=== PATIENT | female | born 1945 | race Caucasian/White ===

== ENCOUNTER → 2018-04-21 10:47 | Outpatient (CLI) | payer MEDICARE, BC, SELFPAY ==
--- NOTE | 2018-04-21 | DI.MRI.S_ITS ---
PROCEDURE: MR LUMBAR SPINE WO CON INDICATIONS: RT HIP AND BACK PAIN TECHNIQUE: Noncontrast sagittal T1 spin echo and T2 fast echo, sagittal STIR, axial T1 and T2 fast spin echo through the lumbar spine. In cases with scoliosis, additional coronal T2 fast spin echo may be performed. COMPARISON: [facility], MR, L-SPINE WITHOUT CONTRAST, 08/30/2013, 7:21. FINDINGS: Image quality: Excellent. Alignment and Curvature: There is trace retrolithesis of L1 on L2, L2 on L3, L3 on L4, Grade 1 anterolithesis of L4 on L5. Bone Marrow: Marrow is of normal overall signal. No acute vertebral body compression fractures. Spinal Cord: Conus medullaris terminates at the L1 level. Visualized cord demonstrates normal signal and size. 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 Paraspinous Soft Tissues: No paravertebral masses. 3 mm left renal cyst. L1-L2: Mild disc bulge without spinal stenosis. No foraminal narrowing. L2-L3: Mild disc bulge without spinal stenosis. No foraminal narrowing. L3-L4: Mild disc bulge without spinal stenosis. No foraminal narrowing. Facet and ligamentum flavum hypertrophy is present. L4-L5: Mild disc bulge with minimal spinal stenosis. No foraminal narrowing. Facet and ligamentum flavum hypertrophy. L5-S1: Mild disc bulge including right foraminal component. without spinal stenosis. Moderate to severe right and moderate left foraminal narrowing, progressive compared to prior exam. IMPRESSION: 1. Multilevel degenerative changes with interval progression. 2. Foraminal narrowing is most prominent at L5-S1 secondary to facet/ligament flavum arthropathy. Dictated by: Nelly Mcdonough M.D. on 04/21/2018 at 15:12 Approved by: Nelly Mcdonough M.D. on 04/21/2018 at 15:27
--- NOTE | 2018-04-21 | DI.MRI.S_ITS ---
PROCEDURE: MR HIP RT WO CON INDICATIONS: RT HIP AND BACK PAIN TECHNIQUE: Noncontrast coronal T1 spin echo and STIR through the bony pelvis. Coronal and axial T2 fast spin echo with fat saturation, sagittal T1 spin echo, and oblique axial T2 fast spin echo with fat saturation through the hip. COMPARISON: [facility], CR, XR PELVIS WITH BILATERAL LATERAL HIPS, 02/04/2018, 8:05. FINDINGS: Image quality: Diagnostic. Bones and joints: There is no acute fracture, dislocation, suspicious osseous lesion, or evidence of avascular necrosis involving the right hip. There is thinning and heterogeneity of the superior hyaline articular cartilage with early degenerative changes of the right hip joint. The alpha angle of the right femoral head measures less than 55?. No significant joint effusion is identified. The remainder of the image osseous structures of the included pelvis demonstrate age-appropriate degenerative changes of the lumbosacral spine. Postoperative changes of the left hip are compatible with a prior left hip arthroplasty. Labrum: Evaluation of the labrum is difficult without intra-articular contrast. However, small superior labral tear is identified extending from approximately the 10 o'clock position (anterosuperior) to the 12 o'clock position (superior). No large paralabral cysts are evident. Tendons and ligaments: There is moderate grade partial-thickness tearing and prominent tendinopathy involving the distal right gluteus medius tendon. Low-grade partial-thickness tearing and tendinopathy of the distal gluteus minimus tendon is present. A small amount of fluid is contained within the greater trochanteric bursa. Slight increased signal is noted involving the proximal right hamstrings tendons. The distal iliopsoas tendons are within normal limits. The ligamentum teres appears intact where visualized. Soft tissues: Visualized muscles demonstrate normal bulk and internal signal. Quadratus femoris muscle demonstrates no internal edema to suggest ischiofemoral impingement. The proximal sciatic neurovascular bundle appears normal adjacent to the hamstring tendons. No free pelvic fluid. Bladder wall thickness is normal. Genitourinary structures and bowel loops appear normal where visualized. IMPRESSION: 1. Mild degenerative changes of the right hip. No fractures. 2. Small anterosuperior right acetabular labral tear. 3. Moderate grade partial-thickness tearing and tendinopathy involving the distal right gluteus medius and gluteus minimus tendons. Please correlate clinically to exclude greater trochanteric pain syndrome. 4. Proximal right hamstrings tendinopathy. Dictated by: Aiden Silva M.D. on 04/21/2018 at 12:36 Approved by: Aiden Silva M.D. on 04/21/2018 at 12:40
== END ==
PROVIDERS: Family Provider Family Medicine; PCP Family Medicine; Visit Provider Family Medicine
DX: M54.5 Low back pain (principal); M25.551 Pain in right hip; S73.191A Other sprain of right hip, initial encounter; M16.11 Unilateral primary osteoarthritis, right hip; M51.36 Other intervertebral disc degeneration, lumbar region; M51.37 Other intervertebral disc degeneration, lumbosacral region; M48.07 Spinal stenosis, lumbosacral region
CPT/HCPCS: 72148; 73721

== ENCOUNTER → 2018-06-28 13:31 | Outpatient (CLI) | payer MEDICARE, BC, SELFPAY ==
--- NOTE | 2018-06-28 | DI.RAD.S_ITS ---
PROCEDURE: FL ARTHROGRAM SHOULDER RT INDICATIONS: INJURY OF RIGHT SHOULDER AND UPPER ARM TECHNIQUE: The indications, alternatives, benefits, risks, and complications of the procedure were explained to the patient. Written informed consent was obtained and placed in the chart. The shoulder was examined fluoroscopically and a site for needle placement chosen for entry into the glenohumeral joint from an anterior approach. The skin was prepped and draped in a sterile fashion, and 1% lidocaine infiltrated from skin down to joint capsule. A spinal needle was inserted into the glenohumeral joint, and a small amount of iodinated contrast media injected to confirm intra-articular placement of the needle tip. This was followed by approximately 12 mL dilute solution of a gadolinium containing MR contrast agent. The needle was removed and a dressing was applied. The patient was given postprocedural instructions and sent to the MR suite for MR imaging. FINDINGS: A single fluoroscopic spot image demonstrates intra-articular location of injected iodinated contrast. IMPRESSION: Successful fluoroscopically guided administration of dilute Gadolinium solution into the shoulder joint for MR arthrogram. Dictated by: Robert Akbar M.D. on 06/28/2018 at 14:40 Approved by: Robert Akbar M.D. on 06/28/2018 at 14:40
--- NOTE | 2018-06-28 13:42 | DI.MRI.S_ITS ---
PROCEDURE: MR SHOULDER RT W CON INDICATIONS: R shoulder injury, Rotator cuff tear R shoulder TECHNIQUE: After the administration of 12 mL of dilute intra-articular Gadolinium contrast, oblique coronal T1 and T2 spin echo with fat saturation, oblique sagittal T1 spin echo with and without fat saturation, oblique sagittal T2 fast spin echo with fat saturation, axial T1 spin echo with fat saturation through the shoulder. COMPARISON: None. FINDINGS: Image quality: Excellent. Rotator cuff: The infraspinatus and subscapularis tendons appear intact throughout. There is, however, a wide full-thickness supraspinatus rotator cuff tear retracted medially, with no evidence of associated muscular atrophy or fatty infiltration of the supraspinatus itself. No additional rotator cuff muscle atrophy on sagittal images. Bones and bursae: No bone marrow contusions or fractures. There is, however, moderately severe acromioclavicular joint degeneration with secondary fibrous and osseous hypertrophy impinging inferiorly against the normal expected course of the supraspinatus tendon. Chronic impingement syndrome likely has been present. The acromion demonstrates conventional anatomy, without an os acromiale. Capsule and soft tissues: The labrum and glenohumeral ligaments appear intact. The long head of the biceps tendon demonstrates normal location and morphology. The rotator interval appears normal, without fibrosis. The coracohumeral ligament is of normal thickness. No intra-articular bodies. IMPRESSION: The patient reports falling injury with subsequent reduced mobility and persistent shoulder pain on the right. This is secondary to a wide full-thickness supraspinatus rotator cuff tear retracted medially, approximately 4.3 cm from expected anatomic position. Chronic impingement syndrome likely has been present against the supraspinatus rotator cuff, associated with moderately severe acromioclavicular joint degeneration and secondary fibrous and osseous hypertrophy projecting against the normal course of the supraspinatus tendon. Dictated by: Robert Akbar M.D. on 06/28/2018 at 17:05 Approved by: Robert Akbar M.D. on 06/28/2018 at 17:08
== END ==
PROVIDERS: Family Provider Family Medicine; PCP Family Medicine; Visit Provider Physical Medicine & Rehabilitation
DX: S46.011A Strain of muscle(s) and tendon(s) of the rotator cuff of right shoulder, initial encounter (principal); M19.011 Primary osteoarthritis, right shoulder; W19.XXXA Unspecified fall, initial encounter
CPT/HCPCS: 23350; 73040; 73222; 77002

== ENCOUNTER 2018-10-06 08:33 | Outpatient (CLI) | payer MEDICARE, BC, SELFPAY ==
[2018-10-06] VITALS (14 sets, daily range): BP systolic 116–196; BP diastolic 48–98; PULSE 58–68; RESP 16–18; TEMP 37; O2SAT 93–99
--- NOTE | 2018-10-06 08:35 | DI.RAD.S_ITS ---
PROCEDURE: PAIN L/S FACET INJ/BLK 1ST NIKO COMPARISON: None. INDICATIONS: SPONDYLOLTHESIS FINDINGS: Fluoroscopic spot filming was performed to verify placement of spinal needles at the L4-L5 and L5-S1 level(s), as labeled on the films. Appropriate location(s) of the needle tip(s) was confirmed by injection of iodinated contrast. Dictated by: Luis Loo M.D. on 10/06/2018 at 10:42 Approved by: Luis Loo M.D. on 10/06/2018 at 10:43
--- NOTE | 2018-10-06 09:14 | PC.NURSE ---
vitals sign at [phone] charged on wrong pts.
--- NOTE | 2018-10-06 09:23 | PC.NURSE ---
waiting for procedure. pt nad.
[2018-10-06] MEDS: MIDAZOLAM 5 MG/5 ML VIAL IV (09:55)
[2018-10-06] MEDS: fentaNYL 100 MCG/2 ML INJ 50 MCG IV (09:55)
--- NOTE | 2018-10-06 09:55 | PC.NURSE ---
0946 to procedure room , ambulate, voided before procedure.
[2018-10-06] MEDS: IOPAMIDOL 15 ML VIAL 3 ML INJ (10:03)
[2018-10-06] MEDS: BUPIVACAINE 0.5% (PF) VIAL 2 ML INJ (10:03)
[2018-10-06] MEDS: BETAMETHASONE 30 MG/5 ML MDV 12 MG INJ (10:04)
[2018-10-06] MEDS: LIDOCAINE 1% 20 ML INJ 10 ML INJ (10:04)
--- NOTE | 2018-10-06 10:17 | PC.NURSE ---
pt tolerated procedure well. Able to get off table with minimal assist. Transferred pt via Wheelchair to pre procedure room for continued monitoring with Kyara OMNTANA.
--- NOTE | 2018-10-06 10:20 | P.PCN_ITS ---
Procedures Date/Time Date of procedure: 10/06/18 Time of procedure: 10:19 General Procedure description: PREOP DIAGNOSIS 1. FACET ARTHROPATHY 2. AXIAL LBP 3. MULTILEVEL DDD POST OP DIAGNOSIS 1. FACET ARTHROPATHY 2. AXIAL LBP 3. MULTILEVEL DDD PROCEDURES 1. FLUORSCOPICALLY GUIDED CONTRAST CONTROLLED FACET JOINT INJECTIONS BILATERAL L4/5, L5/S1 PHYSICIAN: Bernardo Carias, DO INDICATIONS Chanda is referred by Dr. Gray for treatment of Axial LBP FINDINGS Multilevel Facet Arthropathy with Clinically significant axial LBP DESCRIPTION OF PROCEDURE Fluoroscopically guided, contrast-controlled bilateral L4/5, L5/S1 facet joint injections. Following denial of allergy and review of potential side effects and complications, including, but not necessarily limited to, infection, allergic reaction, local tissue breakdown, stroke, temporary or permanent nerve injury, paralysis, and possible , the patient indicated that the patient understood and agreed to proceed. An informed consent document was signed by the patient, witnessed by a nurse, and placed in the patient's chart. Additionally, other treatment options including medications, modalities, and physical therapy were reviewed with the patient. After review of previous anaesthesic history and IV conscious sedation the patient was deemed safe to proceed with todays procedure with IV conscious sedation as ASA class II designation. Safety time-out was performed to confirm patient ID, procedure to be performed and site of procedure. IV sedation was accomplished with a combination of 3mg of Versed and 50mcg of Fentanyl was administered by the RN after DO order, titrated to patient comfort during the course of the procedure while the patient remained responsive to all verbal commands In the prone position, following sterile prep and drape of the lumbar region, the posterior aspect of the L4/5, L5/S1 facet joints were identified fluoroscopically. The skin was anesthetized via a 25-gauge 1.5-inch needle with 1% lidocaine solution into the corresponding facet joints. At this point, a 22- gauge 3.5-inch spinal needle was atraumatically introduced and advanced under fluoroscopic guidance into the corresponding facet joints. Following negative a spiration, injections of approximately 0.2-cc of Isovue 200 confirmed interarticular placement without vascular uptake. The identical procedure was then performed at the L4/5, L5/S1 facet joints on the left. Radiological data, including multiple fluoroscopic views of the lumbosacral spine, reveal a spinal needle at the L4/5, L5/S1 facet joints bilaterally. Subsequent views show flow of contrast material both superiorly and inferiorly within the joint space without vascular or intrathecal uptake. At this point, a total of 0.5 cc including a mixture of 0.25cc Marcaine and 0.25cc betamethasone was injected without complication into each of the corresponding facet joints. The patient tolerated the procedure well without signs or symptoms of complications prior to transfer to the recovery area continued monitoring without incident. The patient was then transferred to the recovery area where they were observed for an appropriate period of time after the injection. The patient reported a VAS score of 7 prior to the procedure and a post- procedure VAS of 0. Total Fluoroscopy Time: 20.3 seconds Total Conscious Sedation Time: 24min POST OP INSTRUCTIONS The patient was provided a Pain Log to continue to record their response to the target-specific procedure prior to follow-up visit with their referring physician. Additionally, specific post-injection care instructions and a contact number to our office were provided if concerns arise regarding possible complications associated with the procedure are suspected. Bernardo Carias DO Complications: none
--- NOTE | 2018-10-06 11:05 | PC.NURSE ---
increase in alertness, tolerated 2 cups of coffee and cup of water, no nausea or vomiting, moving all ext well. skin warm dry pink. dc home with spouse , ambulate with steady gait.
--- NOTE | 2018-10-06 11:11 | PC.NURSE ---
1019 returned from procedure via w/c , awake, reporting woozy, pain free. tolerating drinking coffee and water, spouse at bs.
== END 2018-10-06 10:53 | disposition home or self-care (01) ==
PROVIDERS: Family Provider Family Medicine; PCP Family Medicine; Visit Provider Physical Medicine & Rehabilitation
DX: M47.816 Spondylosis without myelopathy or radiculopathy, lumbar region (principal); M47.817 Spondylosis without myelopathy or radiculopathy, lumbosacral region; M54.5 Low back pain; M51.36 Other intervertebral disc degeneration, lumbar region; M51.37 Other intervertebral disc degeneration, lumbosacral region
CPT/HCPCS: 64493; 64494; 99152; J0702; J2250; J3010

== ENCOUNTER → 2018-11-23 09:54 | Outpatient (CLI) | payer MEDICARE, BC, SELFPAY ==
[2018-11-23 11:16] LABS: Add Manual Diff / Slide Review NO; Basophils Absolute Auto 100 /uL (0-100); Basophils Percent Auto 1.3 % (0-2); Eosinophils Absolute Auto 200 /uL (0-450); Eosinophils Percent Auto 2.3 % (2-4); Hematocrit 43.9 % (36-46); Hemoglobin 14.4 g/dL (12.0-16.0); Lymphocytes Absolute Auto 1800 /uL (1100-4500); Lymphocytes Percent Auto 26.3 % (25-40); Mean Corpuscular HGB Conc 32.8 % (30-36); Mean Corpuscular Hemoglobin 29.2 PG (26-34); Monocytes Absolute Auto 700 /uL (0-900); Monocytes Percent Auto 10.2 % (3-14); Neutrophils Absolute Auto 4200 /uL (1500-7000); Neutrophils Percent Auto 59.9 % (50-75); Platelet Count 222 X10^3/uL (150-400); Red Blood Cell Count 4.93 X10^6/uL (4.0-5.2)
[2018-11-23 11:46] LABS: BUN Creatinine Ratio 31.7 (6-22); Blood Urea Nitrogen 19 mg/dL (7-17); Calcium 9.7 mg/dL (8.4-10.2); Carbon Dioxide 28 mmol/L (22-32); Chloride 105 mmol/L (98-107); Estimated Glomerular Filt Rate > 60.0 mL/min (>60); Glucose 85 mg/dL (80-110); HEMOLYSIS < 15 (0-50); Potassium 4.7 mmol/L (3.4-5.1); Sodium 142 mmol/L (137-145)
== END ==
PROVIDERS: Family Provider Family Medicine; PCP Family Medicine; Visit Provider Internal Medicine Cardiovascular Disease
DX: R94.39 Abnormal result of other cardiovascular function study (principal)
CPT/HCPCS: 36415; 80048; 85025

== ENCOUNTER 2018-12-23 08:36 | Outpatient (CLI) | payer MEDICARE, BC, SELFPAY ==
[2018-12-23] VITALS (11 sets, daily range): BP systolic 93–148; BP diastolic 48–66; PULSE 58–60; RESP 16–20; TEMP 36.1; O2SAT 93–97
--- NOTE | 2018-12-23 08:38 | DI.RAD.S_ITS ---
PROCEDURE: PAIN L/S FACET INJ/BLK 1ST NIKO COMPARISON: [facility], , PAIN L/S FACET INJ/BLK 1ST NIKO, 10/06/2018, 10:06. INDICATIONS: SPONDYLOSIS FINDINGS: Fluoroscopic spot filming was performed to verify placement of spinal needles at the L4-L5, L5-S1 level(s), as labeled on the films. Appropriate location(s) of the needle tip(s) was confirmed by injection of iodinated contrast. Dictated by: Luis Loo M.D. on 12/23/2018 at 10:46 Approved by: Luis Loo M.D. on 12/23/2018 at 10:46
[2018-12-23] MEDS: MIDAZOLAM 5 MG/5 ML VIAL IV (09:35)
[2018-12-23] MEDS: fentaNYL 100 MCG/2 ML INJ 50 MCG IV (09:35)
--- NOTE | 2018-12-23 09:50 | PC.NURSE ---
Pt tolerated procedure well. Pt able to get off table with 2 person minimal assist. Transferred pt via wheelchair to pre procedure room for continued monitoring with Sae [place].
--- NOTE | 2018-12-23 09:52 | PM.PROC.1 ---
Procedures Date/Time Date of procedure: 12/23/18 Time of procedure: 09:52 General Procedure description: Procedure description: 1. FACET ARTHROPATHY PROCEDURES: 1. BILATERAL- L4, L5 and S1 MB BLOCKS PHYSICIAN: Bernardo Carias DO HELEN Oviedo is referred by Dr. Gray for treatment of Bilateral Axial LBP. DESCRIPTION OF PROCEDURE Fluoroscopically guided, contrast-controlled bilateral L4, L5 and S1 medial branch blocks with 0.5cc of 0.5% Marcaine. Following review of allergy and review of potential side effects and complications, including, but not necessarily limited to, infection, allergic reaction, local tissue breakdown, nerve injury, paralysis, stroke and possible , the patient indicated that the patient understood and agreed to proceed. An informed consent document was signed by the patient, witnessed by a nurse, and placed in the patient's chart. After review of previous anaesthesic history and IV conscious sedation the patient was deemed safe to proceed with todays procedure with IV conscious sedation as ASA class II designation. Safety time-out was performed to confirm patient ID, procedure to be performed and site of procedure. IV sedation was accomplished with a combination of 3mg of Versed and 50 mg of fentanyl was administered by the RN after DO order, titrated to patient comfort during the course of the procedure while the patient remained responsive to all verbal commands In the prone position, following sterile prep and drape of the lumbar region, the right L4, L5 and S1 anatomical location of the medial branch of the dorsal ramus was identified fluoroscopically. Subsequently an anesthetic skin wheal using 1% lidocaine solution was initiated at each of the anatomical spots. Subsequently then a 22-gauge 3.5-inch spinal needle was atraumatically introduced and advanced under fluoroscopic guidance at each of the corresponding sites at the right L4, L5 and S1 MB. After negative aspiration, 0.2 cc of Isovue 200 was injected, confirming placement without vascular or intrathecal uptake. Subsequently then 0.5 cc of 0.5% Marcaine solution was injected at each of the corresponding sites at the right L4, L5 and S1 medial branch locations. The identical procedure was replicated on the left. The patient tolerated the procedure well without signs or symptoms of complications prior to transfer to the recovery area continued monitoring without incident. Post-procedure, the patient was monitored initiating provocative activities to measure the amount of relief from block of the facetogenic pain. The patient reported a VAS of 7 prior to the procedure and a post-procedure VAS of 1. It has been a pleasure to assist in the diagnostic and therapeutic care of your patient. Total Fluoroscopy Time: 24.8 seconds Total Conscious Sedation Time: 24min POST OP INSTRUCTIONS The patient was provided with a Pain Log to complete over the next several hours and subsequent days prior to the patient's follow up with the ordering physician. If the patient has religion department chair relief to the solution applied, then they may be a candidate for medial branch rhizotomy. The patient is aware, was provided, once again, with a Pain Log and will follow up with the referring physician for review and clinical correlation Bernardo Carias DO Complications: none
[2018-12-23] MEDS: IOPAMIDOL 15 ML VIAL 3 ML INJ (10:00)
[2018-12-23] MEDS: BUPIVACAINE 0.5% (PF) VIAL 5 ML INJ (10:00)
[2018-12-23] MEDS: LIDOCAINE 1% 20 ML INJ 10 ML INJ (10:01)
[2018-12-23] MEDS: BETAMETHASONE 30 MG/5 ML MDV 12 MG INJ (10:01)
== END 2018-12-23 10:25 ==
LOC: RAD 08:37
PROVIDERS: Family Provider Family Medicine; PCP Family Medicine; Visit Provider Physical Medicine & Rehabilitation
DX: M47.816 Spondylosis without myelopathy or radiculopathy, lumbar region (principal); M47.817 Spondylosis without myelopathy or radiculopathy, lumbosacral region
CPT/HCPCS: 64493; 64494; 99152; J0702; J2250; J3010

== ENCOUNTER → 2019-02-21 09:34 | Outpatient (CLI) | payer MEDICARE, BC, SELFPAY ==
--- NOTE | 2019-02-21 | DI.RAD.S_ITS ---
PROCEDURE: XR HIP W PEL IF DONE RT 2V INDICATIONS: right hip pain TECHNIQUE: AP view of the pelvis with lateral view of the right hip were obtained. COMPARISON: [facility], , HIP 2V LEFT, 01/30/2014, 9:34. FINDINGS: Bones: No acute fracture or dislocation. Moderate multilevel degenerative changes of the lower lumbar spine with mild degenerative changes of the bilateral sacroiliac joints and right hip joint are noted. There is a left total hip arthroplasty which appears in expected anatomic alignment. No acute hardware consultation identified. Soft tissues: No suspicious soft tissue calcifications or masses. IMPRESSION: Mild degenerative changes of the right hip joint. Dictated by: Paul Durand M.D. on 02/21/2019 at 15:27 Approved by: Paul Durand M.D. on 02/21/2019 at 15:29
== END ==
PROVIDERS: Family Provider Family Medicine; PCP Family Medicine; Visit Provider Family Medicine
DX: M25.551 Pain in right hip (principal); M47.816 Spondylosis without myelopathy or radiculopathy, lumbar region; M47.898 Other spondylosis, sacral and sacrococcygeal region; Z96.642 Presence of left artificial hip joint
CPT/HCPCS: 73502

== ENCOUNTER 2019-04-12 11:04 | Outpatient (CLI) | payer MEDICARE, BC, SELFPAY ==
[2019-04-12] VITALS (7 sets, daily range): BP systolic 127–170; BP diastolic 51–89; PULSE 60–63; RESP 16–18; TEMP 36.8; O2SAT 94–97
--- NOTE | 2019-04-12 11:07 | DI.RAD.S_ITS ---
PROCEDURE: PAIN L/S MED/LAT N RFA BILAT INDICATIONS: SPONDYLOSIS FINDINGS: Fluoroscopic spot filming was performed to verify placement of spinal needles at the right L4, L5, S1 level(s), as labeled on the films. IMPRESSION: Right L4, L5, S1 transforaminal needle placement. Dictated by: Souleymane Wright M.D. on 04/12/2019 at 17:25 Approved by: Souleymane Wright M.D. on 04/12/2019 at 17:25
[2019-04-12] MEDS: MIDAZOLAM 5 MG/5 ML VIAL IV (12:11)
[2019-04-12] MEDS: fentaNYL 100 MCG/2 ML INJ 50 MCG IV (12:11)
[2019-04-12] MEDS: LIDOCAINE 1% 20 ML 10 ML INJ (12:29)
[2019-04-12] MEDS: BUPIVACAINE 0.5% (PF) VIAL 2 ML INJ (12:30)
[2019-04-12] MEDS: BETAMETHASONE 30 MG/5 ML MDV 12 MG INJ (12:30)
--- NOTE | 2019-04-12 12:42 | P.PCN_ITS ---
Procedures Date/Time Date of procedure: 04/12/19 Time of procedure: 12:42 General Procedure description: PREOP DIAGNOSIS 1. RECALCITRANT FACET ARTHROPATHY, POST OP DIAGNOSIS 1. RECALCITRANT FACET ARTHROPATHY, PROCEDURES 1. RIGHT L4 AND L5 MEDIAL BRANCH RADIOFREQUENCY NEUROTOMY AND RIGHT S1 DORSAL RAMUS BRANCH RADIOFREQUENCY NEUROTOMY, SURGEON: Bernardo Carias, DO INDICATIONS Ivelisse is referred by for treatment of facet arthropathy. DESCRIPTION OF PROCEDURE Right L4 and L5 medial branch radiofrequency neurotomy and right S1 dorsal ramus branch radiofrequency neurotomy under fluoroscopy with conscious sedation. The patient is well known to this clinic having undergone previous facet injections with good but temporary relief. The patient has experienced appropriate, concordant relief with previous facet and median branch blocks but the patient's pain has been recalcitrant to further conservative measures. Therefore, based upon the patient's relief and persistent symptoms, the patient is considered an appropriate candidate for facet rhizotomy. All of the patient's questions regarding the risks versus benefits of the procedure, including, but not limited to, bleeding, infection, temporary as well as lasting nerve injury, paralysis, stroke, and , as well treatment alternatives were answered to satisfaction. After review of previous anaesthesic history and IV conscious sedation the patient was deemed safe to proceed with todays procedure with IV conscious sedation as ASA class II designation. Safety time-out was performed to confirm patient ID, procedure to be performed and site of procedure. IV sedation was accomplished with a combination of 3mg of Versed and 50mcg of Fentanyl was administered by the RN after DO order, titrated to patient comfort during the course of the procedure while the patient remained responsive to all verbal commands. After obtaining informed consent, denial of pertinent drug allergies, as well as being made aware of the potential risks of bleeding, infection, spinal cord trauma, paralysis, temporary and permanent nerve damage, seizure, stroke, and possible , the patient was brought to the fluoroscopy suite and positioned prone on the fluoroscopy table. The lumbar region was prepped with Betadine and covered with a fenestrated drape in the usual sterile fashion. Appropriate monitors applied including pulse oximeter, pulse, and blood pressure for regular monitoring throughout the procedure. After local infiltration using 1% lidocaine, under fluoroscopic guidance, a 10- cm RF insulated needle with a 10-mm active tip was positioned parallel to the junction of the right sacral ala and the superior articulating process where the S1 dorsal ramus resides. Needle placement was confirmed with sensory stimulation at 50 Hz, with motor stimulation of .5v on the right which produced local stimulation without radicular component. The stimulation was then increased to 1.5v with, once again, only local multifidus stimulation without radicular component. This was then followed by two discreet lesions performed at 80 degrees Celsius for 90 seconds each. The needle was then removed and the identical procedure was performed along the length of the right L5 medial branch with motor stimulation at .7v on the right. The identical procedure was once again performed along the length of the right L4 medial branch with motor stimulation of .5v on the right. The patient tolerated the procedure well without signs or symptoms of complications prior to transfer to the recovery area continued monitoring without incident. The patient was then transferred to the recovery area where they were observed for an appropriate period of time after the injection. The patient was then transferred to the recovery area where they were observed for a n appropriate period of time after the injection. The patient reported a VAS score of 9 prior to the procedure and a post- procedure VAS of 0. Total Fluoroscopy Time: 31 seconds Total Conscious Sedation Time: 45min POST OP INSTRUCTIONS The patient was provided a Pain Log to continue to record the patient's response to the target-specific procedure prior to the patient's follow-up visit with the referring physician. Additionally, specific post-injection care instructions and a contact number to our office were provided if concerns arise regarding possible complications associated with the procedure are suspected. Bernardo Carias DO Complications: none
--- NOTE | 2019-04-12 12:43 | PC.NURSE ---
Post procedure note: Medicated per provider orders. VSS, O2 sat WNL throughout procedure. Patient tolerated procedure with no unusual pain or discomfort. Able to transfer from table to w/c without difficulties. Transferred to post op. handoff report given to Gilberto Alvarez RN. at chairside.
== END 2019-04-12 13:12 | disposition home or self-care (01) ==
PROVIDERS: Family Provider Family Medicine; PCP Family Medicine; Visit Provider Physical Medicine & Rehabilitation
DX: M47.816 Spondylosis without myelopathy or radiculopathy, lumbar region (principal); M47.817 Spondylosis without myelopathy or radiculopathy, lumbosacral region
CPT/HCPCS: 64635; 64636; 99152; J0702; J2250; J3010

== ENCOUNTER → 2019-06-29 17:21 | Outpatient (CLI) | payer MEDICARE, BC, SELFPAY ==
--- NOTE | 2019-06-29 | DI.RAD.S_ITS ---
PROCEDURE: XR CHEST 2V INDICATIONS: COUGH TECHNIQUE: 2 views of the chest were acquired. COMPARISON: Merged With [facility], , CHEST 2 VIEW, 10/29/2015, 9:21. FINDINGS: Surgical changes and devices: Dual-lead cardiac pacer. Bilateral breast prostheses. Lungs and pleura: Scattered subsegmental atelectasis and/or scarring. No focal consolidation. . No pleural effusions or pneumothorax. Mediastinum: Mediastinal contours are normal. Heart size is normal. Bones and chest wall: No suspicious bony abnormalities. Soft tissues appear unremarkable. IMPRESSION: No acute disease Dictated by: Luis Loo M.D. on 06/30/2019 at 9:20 Approved by: Luis Loo M.D. on 06/30/2019 at 9:33
== END ==
PROVIDERS: Family Provider Family Medicine; PCP Family Medicine; Visit Provider Family Medicine
DX: R05 Cough (principal); Z95.0 Presence of cardiac pacemaker; Z98.82 Breast implant status
CPT/HCPCS: 71046

== ENCOUNTER → 2019-11-22 14:55 | Outpatient (CLI) | payer MEDICARE, BC, SELFPAY ==
--- NOTE | 2019-11-22 | DI.RAD.S_ITS ---
PROCEDURE: XR SACRUM COCCYX MIN 2V INDICATIONS: LOW BACK PAIN STATUS POST FALL TECHNIQUE: 3 views of the sacrum and coccyx acquired. COMPARISON: None. FINDINGS: Bones: No fractures or dislocations. No suspicious bony lesions. Partially visualized left hip arthroplasty. Lower lumbar spondylosis. Normal alignment at the sacroiliac joints and pubis symphysis. There is degenerative periarticular sclerosis Soft tissues: Visualized bowel gas pattern is normal. No suspicious soft tissue densities. IMPRESSION: No fracture. If the patient's symptoms do not improve recommend followup radiographs in 10 days to assess for healing sclerosis/occult injury. Dictated by: Luis Loo M.D. on 11/22/2019 at 16:29 Approved by: Luis Loo M.D. on 11/22/2019 at 16:30
--- NOTE | 2019-11-22 14:59 | DI.RAD.S_ITS ---
PROCEDURE: XR LUMBAR SPINE 2-3V INDICATIONS: Low back pain s/p fall TECHNIQUE: 3 views of the lumbar spine were acquired. COMPARISON: [facility], , L-SPINE 2-3 VIEWS, 05/04/2017, 15:52. FINDINGS: Bones: No fracture or focal osseous destruction. Multilevel degenerative endplate sclerosis and spurring. Diffuse facet arthropathy. . Grade 1 anterolisthesis of L4 on L5. Moderate narrowing of L4-L5 and L5-S1 disc spaces. Dextroscoliosis Soft tissues: Scattered vascular calcifications seen in the aorta. IMPRESSION: No fracture Dextroscoliosis Grade 1 anterolisthesis of L4 on L5. Lower lumbar spondylosis and diffuse facet arthropathy Dictated by: Luis Loo M.D. on 11/22/2019 at 16:27 Approved by: Luis Loo M.D. on 11/22/2019 at 16:28
== END ==
PROVIDERS: Family Provider Family Medicine; PCP Family Medicine; Referring Provider Family Medicine; Visit Provider Family Medicine
DX: M54.5 Low back pain (principal); M47.816 Spondylosis without myelopathy or radiculopathy, lumbar region; M43.16 Spondylolisthesis, lumbar region; Z96.642 Presence of left artificial hip joint
CPT/HCPCS: 72100; 72220

== ENCOUNTER → 2020-01-07 08:33 | Outpatient (CLI) | payer MEDICARE, BC, SELFPAY ==
[2020-01-09 21:05] LABS: COVID19 Sendout Not Detected (Not Detect)
== END ==
PROVIDERS: Family Provider Family Medicine; PCP Family Medicine; Visit Provider Physician Assistant
DX: Z11.59 Encounter for screening for other viral diseases (principal)
CPT/HCPCS: 87635

== ENCOUNTER 2020-01-10 12:57 | Outpatient (CLI) | payer MEDICARE, BC, SELFPAY ==
[2020-01-10] VITALS (7 sets, daily range): BP systolic 138–171; BP diastolic 29–65; PULSE 60–68; RESP 16–20; TEMP 36.7; O2SAT 94–97
--- NOTE | 2020-01-10 12:58 | DI.RAD.S_ITS ---
PROCEDURE: PAIN L INTERLAMINAR/CAUDAL INJ INDICATIONS: SPONDYLOSIS COMPARISON: None. FINDINGS: Fluoroscopic spot filming was performed to verify placement of spinal needles at the L4-L5 level(s), as labeled on the films. Appropriate location(s) of the needle tip(s) was confirmed by injection of iodinated contrast. Dictated by: Luis Loo M.D. on 01/10/2020 at 15:11 Approved by: Luis Loo M.D. on 01/10/2020 at 15:11
[2020-01-10] MEDS: DEXAMETHASONE 10 MG/ML VIAL 20 MG INJ (13:47)
[2020-01-10] MEDS: IOPAMIDOL 15 ML VIAL 3 ML INJ (13:47)
[2020-01-10] MEDS: BUPIVACAINE 0.25% (PF) VIAL 2 ML INJ (13:47)
[2020-01-10] MEDS: BETAMETHASONE 30 MG/5 ML MDV 6 MG INJ (13:47)
[2020-01-10] MEDS: MIDAZOLAM 5 MG/5 ML VIAL IV (13:48)
--- NOTE | 2020-01-10 13:54 | P.PCN_ITS ---
Date/Time/Diagnoses Date of procedure: 01/10/20 Time of procedure: 13:54 Pre-procedure diagnosis: 1. HNP WITH RADICULAR FEATURES, 2. MULTILEVEL CENTRAL STENOSIS, Post-procedure diagnosis: same Procedure Notes Procedure: 1. FLUOROSCOPICALLY GUIDED CONTRAST CONTROLLED INTERLAMINAR EPIDURAL STEROID INJECTION -L4/5 Indications: Ivelisse is referred by for treatment of Bilateral Foraminal Stenosis R>L LE symptoms. Physician: Bernardo Carias Total Fluoroscopy time (seconds): 6 Total sedation minutes: 9 Complications: none Procedure in detail & Post-procedure care: FINDINGS Multilevel Central Spinal Stenosis with Nerve Root Compression DESCRIPTION OF PROCEDURE Fluoroscopically guided, contrast-controlled L4/5 translaminar epidural steroid injection. Following review of allergy and review of potential side effects and complications, including, but not necessarily limited to, infection, allergic reaction, local tissue breakdown, temporary as well as permanent nerve injury, paralysis, stroke and possible , the patient indicated that the patient understood and agreed to proceed. An informed consent document was signed by the patient, witnessed by a nurse, and placed in the patient's chart. Additionally, other treatment options including modalities, medications, and physical therapy were reviewed with the patient. After review of previous anaesthesic history and IV conscious sedation the patient was deemed safe to proceed with today?s procedure with IV conscious sedation as ASA class II designation. Safety time-out was performed to confirm patient ID, procedure to be performed and site of procedure. IV sedation was accomplished with a combination of 2mg of Versed was administered by the RN after DO order, titrated to patient comfort during the course of the procedure while the patient remained responsive to all verbal commands In the prone position, following sterile prep and drape of the lumbar region, the L4/5 translaminar space was identified fluoroscopically. The skin was anesthetized via a 25-gauge, 1.5-inch needle with 1% lidocaine solution. At this point, a 22-gauge short bevel spinal needle was atraumatically introduced and advanced under fluoroscopic guidance into the region of the L4/5 translaminar space. Depth was confirmed on lateral view. Radiological data, including multiple fluoroscopic views of the lumbar spine, reveal a spinal needle at the L4/5 translaminar space. Lateral views then show placement of the needle in the epidural space. Subsequent views show contrast material flowing superiorly and inferiorly in the epidural space. No vascular or intrathecal uptake is observed. At this point, using loss of resistance technique with saline and air, the epidural space was entered. This was confirmed following negative aspiration with injection of approximately 1.5 cc of Isovue 200, showing excellent epidural flow without vascular or intrathecal uptake. At this point, 1 cc of 1% lidocaine solution combined with 3cc or 20mg of dexamethasone and 6mg betamethasone was injected without incident. The patient tolerated the procedure well without signs or symptoms of complications prior to transfer to the recovery area continued monitoring without incident. The patient was then transferred to the recovery area where they were observed for an appropriate period of time after the injection. The patient reported a VAS score of 6 prior to the procedure and a post- procedure VAS of 0. POST OP INSTRUCTIONS The patient was provided a Pain Log to continue to record their response to the target-specific procedure prior to follow-up visit with their referring physician. Additionally, specific post-injection care instructions and a contact number to our office were provided if concerns arise regarding possible complications associated with the procedure are suspected.
--- NOTE | 2020-01-10 14:04 | PC.NURSE ---
pt tolerated procedure well, 2PA transfer from table to chair. Returned to pre proc room for further observation
--- NOTE | 2020-01-10 14:48 | PC.NURSE ---
Pt trasnferred to post procedure recovery at 1406- vitals stable. Tolerated water and cookies. No c/o pain. IV removed without incident. No questions with DC instructions.
--- NOTE | 2020-01-10 16:23 | PC.NURSE ---
1353 Pt tolerated procedure well, 2PA transfer from table to , returned to pre proc room for further monitoring
== END 2020-01-10 14:48 ==
LOC: RAD 12:58
PROVIDERS: Family Provider Family Medicine; PCP Family Medicine; Referring Provider Physical Medicine & Rehabilitation; Visit Provider Physical Medicine & Rehabilitation
DX: M51.16 Intervertebral disc disorders with radiculopathy, lumbar region (principal); M48.061 Spinal stenosis, lumbar region without neurogenic claudication
CPT/HCPCS: 62323; 99152; J0702; J1100; J2250; J3010

== ENCOUNTER → 2020-08-01 09:28 | Outpatient (CLI) | payer MEDICARE, BC, SELFPAY ==
--- NOTE | 2020-08-01 09:30 | DI.US.S_ITS ---
PROCEDURE: US CAROTID DOPPLER BI INDICATIONS: LEFT CAROTID ARTERY STENOSIS TECHNIQUE: Color and pulse Doppler interrogation was performed of both carotid systems, with image documentation and velocity measurements. COMPARISON: None. FINDINGS: Stenosis calculations are based on SRU (Society of Radiologists in Ultrasound) criteria. Right side: Brachial blood pressure: 174/75 mm Hg. Common carotid artery peak systolic velocity: 115 cm/sec. Internal carotid artery peak systolic velocity: 96 cm/sec. Internal carotid artery end diastolic velocity: 19 cm/sec. External carotid artery peak systolic velocity: 103 cm/sec. ICA/CCA peak systolic ratio: 0.6. Coates scale imaging description: Mild calcified and noncalcified atherosclerotic plaque. Percent internal carotid artery stenosis: Less than 50 percent stenosis. Vertebral artery: Flow direction is antegrade. Left side: Brachial blood pressure: 145/68 mm Hg. Common carotid artery peak systolic velocity: 115 cm/sec. Internal carotid artery peak systolic velocity: 218 cm/sec. Internal carotid artery end diastolic velocity: 46 cm/sec. External carotid artery peak systolic velocity: 112 cm/sec. ICA/CCA peak systolic ratio: 1.9. Coates scale imaging description: Extensive calcified atherosclerotic plaque. Percent internal carotid artery stenosis: 50-69 percent stenosis. Vertebral artery: Flow direction is antegrade. IMPRESSION: 1. Right ICA: Less than 50 percent stenosis. 2. Left ICA: 50-69 percent stenosis. 3. Antegrade flow in the bilateral vertebral arteries. 4. Approximately 30 mmhg difference between the right upper and left upper systolic blood pressure. This could be due to proximal or upper extremity stenosis. -Recommend clinical correlation and possible further investigation. Dictated by: Souleymane Wright M.D. on 08/02/2020 at 9:26 Approved by: Souleymane Wright M.D. on 08/02/2020 at 9:34
== END ==
PROVIDERS: Family Provider Family Medicine; PCP Family Medicine; Referring Provider Internal Medicine Cardiovascular Disease; Visit Provider Internal Medicine Cardiovascular Disease
DX: I65.22 Occlusion and stenosis of left carotid artery (principal)
CPT/HCPCS: 93880

== ENCOUNTER → 2020-10-04 13:41 | Outpatient (CLI) | payer MEDICARE, BC, SELFPAY ==
--- NOTE | 2020-10-04 13:50 | DI.RAD.S_ITS ---
PROCEDURE: XR HIP W PEL IF DONE NIKO MIN 4V INDICATIONS: BI HIP PAIN TECHNIQUE: AP pelvis with lateral view(s) of the left and right hip(s). COMPARISON: [facility], , XR HIP W PEL IF DONE RT 2V, 02/21/2019, 9:37. FINDINGS: Bones: No fractures or dislocations. Pelvic ring appears intact. No suspicious bony lesions. Left hip arthroplasty present with prosthetic components in expected positions. There is mild right hip joint narrowing with periarticular osteophyte formation. Degenerative disc and facet disease involves the inferior lumbar spine. Soft tissues: The visualized bowel gas pattern is normal. No suspicious soft tissue calcifications. IMPRESSION: Stable appearance of left hip arthroplasty and mild right hip joint degeneration. Dictated by: Pauly Montanez MD on 10/04/2020 at 15:20 Approved by: Pauly Montanez MD, PhD on 10/04/2020 at 17:52
[2020-10-04 15:03] LABS: Add Manual Diff / Slide Review NO; Basophils Absolute Auto 100 /uL (0-100); Eosinophils Absolute Auto 300 /uL (0-450); Eosinophils Percent Auto 2.7 % (2-4); Hematocrit 40.3 % (36-46); Hemoglobin 13.6 g/dL (12.0-16.0); Lymphocytes Absolute Auto 2400 /uL (1100-4500); Lymphocytes Percent Auto 26.4 % (25-40); Mean Corpuscular HGB Conc 33.8 % (30-36); Mean Corpuscular Hemoglobin 29.5 PG (26-34); Mean Corpuscular Volume 87.3 fL (80-100); Monocytes Absolute Auto 800 /uL (0-900); Monocytes Percent Auto 9.1 % (3-14); Neutrophils Absolute Auto 5600 /uL (1500-7000); Neutrophils Percent Auto 60.8 % (50-75); Platelet Count 265 X10^3/uL (150-400); Red Blood Cell Count 4.61 X10^6/uL (4.0-5.2); Red Cell Distribution Width 14.8 % (11.6-14.8); White Blood Cell Count 9.2 X10^3/uL (4.5-11.0)
[2020-10-04 15:13] LABS: Hemoglobin A1C% w Est Avg Glu 5.8 % (4.0-6.0)
[2020-10-04 15:36] LABS: Alanine Aminotransferase 32 IU/L (<35); Albumin 3.9 g/dL (3.5-5.0); Albumin Globulin Ratio 1.4 (1.0-2.8); Alkaline Phosphatase 106 U/L (38-126); Aspartate Aminotransferase 79 IU/L (14-36); BUN Creatinine Ratio 26.2 (6-22); Bilirubin Total 0.4 mg/dL (0.2-1.3); Blood Urea Nitrogen 22 mg/dL (7-17); Calcium 10.1 mg/dL (8.4-10.2); Carbon Dioxide 28 mmol/L (22-32); Chloride 101 mmol/L (98-107); Estimated Glomerular Filt Rate > 60.0 mL/min (>60); Globulin 2.8 g/dL (1.7-4.1); Glucose 103 mg/dL (80-110); HEMOLYSIS < 15 (0-50); Potassium 3.4 mmol/L (3.4-5.1); Sodium 139 mmol/L (137-145); Total Protein 6.7 g/dL (6.3-8.2)
== END ==
PROVIDERS: Family Provider Family Medicine; PCP Family Medicine; Referring Provider Family Medicine; Visit Provider Family Medicine
DX: M25.552 Pain in left hip (principal); R73.9 Hyperglycemia, unspecified; I10 Essential (primary) hypertension; M25.551 Pain in right hip; E78.5 Hyperlipidemia, unspecified; I73.9 Peripheral vascular disease, unspecified; C67.9 Malignant neoplasm of bladder, unspecified; I49.5 Sick sinus syndrome; Z95.0 Presence of cardiac pacemaker; E87.6 Hypokalemia
CPT/HCPCS: 36415; 73522; 80053; 83036; 84443; 85025

== ENCOUNTER → 2021-03-25 09:57 | Outpatient (CLI) | payer MEDICARE, BC, SELFPAY ==
--- NOTE | 2021-03-25 09:59 | DI.RAD.S_ITS ---
PROCEDURE: XR LUMBAR SPINE MIN 4V INDICATIONS: lumbar radic TECHNIQUE: 5 views of the lumbar spine were acquired, including bilateral oblique views. COMPARISON: [facility], CR, XR LUMBAR SPINE 2-3V, 11/22/2019, 15:02. FINDINGS: Bones: 5 nonrib-bearing vertebrae are present. There is moderate rightward curvature of lumbar spine centered at L3 level. Grade 1 anterolisthesis of L4 on L5 is seen and measures 9 millimeter in distance unchanged from previous study. Degenerative endplate changes and bilateral facet arthrosis throughout lumbar spine is seen. No vertebral body compression fractures. No suspicious bony lesions. Soft tissues: Overlying bowel gas pattern is normal. No suspicious soft tissue calcifications. Oblique images: No pars defects. IMPRESSION: 1. Grade 1 9 mm anterolisthesis of L4 on L5. No gross pars defects are seen. 2. Scoliosis as above. Degenerative disc disease is seen throughout lumbar spine. No acute compression fracture. Dictated by: Saul Faith M.D. on 03/25/2021 at 10:35 Approved by: Saul Faith M.D. on 03/25/2021 at 10:37
--- NOTE | 2021-03-25 09:59 | DI.RAD.S_ITS ---
PROCEDURE: XR SHOULDER RT MIN 2V INDICATIONS: RIGHT SHOULDER PAIN TECHNIQUE: 3 views of the shoulder were acquired. COMPARISON: June 13, 2018. FINDINGS: Bones: No fractures or dislocations. Narrowing of the acromial humeral interval. No suspicious bony lesions. Visualized ribs appear intact. Soft tissues: No suspicious soft tissue calcifications. IMPRESSION: No acute osseous abnormality. Dictated by: Sigifredo Pereira M.D. on 03/25/2021 at 10:39 Approved by: Sigifredo Pereira M.D. on 03/25/2021 at 10:44
== END ==
PROVIDERS: Family Provider Family Medicine; PCP Family Medicine; Referring Provider Physical Medicine & Rehabilitation; Visit Provider Physical Medicine & Rehabilitation
DX: S49.91XA Unspecified injury of right shoulder and upper arm, initial encounter (principal); M75.101 Unspecified rotator cuff tear or rupture of right shoulder, not specified as traumatic; M12.811 Other specific arthropathies, not elsewhere classified, right shoulder; M43.16 Spondylolisthesis, lumbar region; M51.26 Other intervertebral disc displacement, lumbar region; M51.36 Other intervertebral disc degeneration, lumbar region; M41.86 Other forms of scoliosis, lumbar region; X58.XXXA Exposure to other specified factors, initial encounter
CPT/HCPCS: 72110; 73030

== ENCOUNTER → 2021-09-26 09:29 | Outpatient (CLI) | payer MEDICARE, BC, SELFPAY ==
--- NOTE | 2021-09-26 09:31 | DI.US.S_ITS ---
PROCEDURE: US CAROTID DOPPLER BI INDICATIONS: Occlusion and stenosis of left carotid artery TECHNIQUE: Color and pulse Doppler interrogation was performed of both carotid systems, with image documentation and velocity measurements. COMPARISON: [facility], , CAROTID DOPPLER BI, 08/01/2020, 9:52. FINDINGS: Stenosis calculations are based on SRU (Society of Radiologists in Ultrasound) criteria. Right side: Brachial blood pressure: 127/81 mm Hg. Common carotid artery peak systolic velocity: 163 cm/sec. Internal carotid artery peak systolic velocity: 100 cm/sec. Internal carotid artery end diastolic velocity: 17 cm/sec. External carotid artery peak systolic velocity: 119 cm/sec. ICA/CCA peak systolic ratio: 0.6. Coates scale imaging description: Mild atherosclerotic plaque Percent internal carotid artery stenosis: Less than 50%. Vertebral artery: Flow direction is antegrade. Left side: Brachial blood pressure: 124/54 mm Hg. Common carotid artery peak systolic velocity: 105 cm/sec. Internal carotid artery peak systolic velocity: 217 cm/sec. Internal carotid artery end diastolic velocity: 32 cm/sec. External carotid artery peak systolic velocity: 137 cm/sec. ICA/CCA peak systolic ratio: 2.1. Coates scale imaging description: Calcified atherosclerotic plaque Percent internal carotid artery stenosis: 50-69%. Vertebral artery: Flow direction is antegrade. IMPRESSION: 1. Left internal carotid artery 50-69% stenosis has not significantly changed when compared to the exam from 08/01/2020. 2. Stable less than 50% stenosis of the right internal carotid artery. Dictated by: Teddy Schmidt M.D. on 09/26/2021 at 13:39 Approved by: Teddy Schmidt M.D. on 09/26/2021 at 13:45
== END ==
PROVIDERS: Family Provider Family Medicine; PCP Family Medicine; Referring Provider Internal Medicine Cardiovascular Disease; Visit Provider Internal Medicine Cardiovascular Disease
DX: I65.22 Occlusion and stenosis of left carotid artery (principal); I10 Essential (primary) hypertension
CPT/HCPCS: 93880

== ENCOUNTER → 2022-07-04 08:17 | Outpatient (CLI) | payer MEDICARE, BC, SELFPAY ==
--- NOTE | 2022-07-04 | DI.US.S_ITS ---
PROCEDURE: US PERIPH VENOUS LOW EXTREM RT INDICATIONS: PAIN TECHNIQUE: Real-time imaging, as well as color and pulse Doppler interrogation, were performed of the lower extremity deep veins from the inguinal ligament to the popliteal fossa. COMPARISON: None. FINDINGS: The common femoral, femoral and popliteal veins are normally compressible, and free of intraluminal thrombus. Color and pulse Doppler demonstrate normal phasic intraluminal flow. There is normal augmentation response to distal compression maneuver. IMPRESSION: No right lower extremity deep vein thrombosis. Dictated by: Thalia Hilliard M.D. on 07/04/2022 at 9:24 Approved by: Thalia Hilliard M.D. on 07/04/2022 at 9:25
[2022-07-04 10:09] LABS: INR 1.2 (0.9-1.3); Prothrombin Time 13.5 SECONDS (10.1-12.7)
== END ==
PROVIDERS: Family Provider Family Medicine; PCP Family Medicine; Referring Provider Family Medicine; Visit Provider Family Medicine
DX: M79.661 Pain in right lower leg (principal); M79.89 Other specified soft tissue disorders; I49.5 Sick sinus syndrome; I73.9 Peripheral vascular disease, unspecified; Z95.0 Presence of cardiac pacemaker
CPT/HCPCS: 85610; 93971

== ENCOUNTER 2022-07-19 11:23 | Emergency (ER) | payer MEDICARE, BC, SELFPAY ==
[2022-07-19] VITALS (27 sets, daily range): BP systolic 90–191; BP diastolic 62–100; PULSE 60–153; RESP 14–37; TEMP 36.5; O2SAT 93–99; BMI 42.2
--- NOTE | 2022-07-19 11:30 | DI.CT.S_ITS ---
PROCEDURE: CT HEAD/BRAIN WO CON INDICATIONS: fall, facial bruising, small lac next to eye, on asa TECHNIQUE: Noncontrast 4.5 mm thick angled axial sections acquired from the foramen magnum to the vertex, with coronal and sagittal reformats. For radiation dose reduction, the following was used: automated exposure control, adjustment of mA and/or kV according to patient size. COMPARISON: [facility], CT, CT CHEST ABD PEL W CON, 07/19/2022, 11:34. [facility], CT, CT CERVICAL SPINE WO CON, 07/19/2022, 11:34. [facility], CT, CT FACIAL BONES WO CON, 07/19/2022, 11:34. [facility], MR, BRAIN WITHOUT CONTRAST, 07/20/2015, 9:48. FINDINGS: Image quality: Mild streak artifact can be seen through the skull base. CSF spaces: Basal cisterns are patent. No extra-axial fluid collections. The ventricles are symmetric in size and shape. Brain: No intracranial bleeds or masses. There is cerebral volume loss for age, with resultant ventricular and sulcal prominence. There are periventricular and deep white matter chronic small vessel ischemic changes. There is intracranial internal carotid artery atherosclerosis. Skull and face: Tissue swelling is seen. There is a right inferior orbital blowout fracture seen. There is a right posterior scalp hematoma seen, as on series 3, image 12. No associated calvarial fracture is seen. Calvarium and visualized facial bones appear intact, without suspicious lesions. Sinuses: There is blood seen within the right maxillary sinus. A small amount of layering blood can be seen within the right sphenoid sinus. The paranasal sinuses are otherwise relatively clear. No abnormal fluid is seen within the mastoid air cells. IMPRESSION: Right inferior orbital wall blowout fracture. Please see the accompanying maxillofacial CT report. Right periorbital soft tissue swelling. Right posterior scalp hematoma, without an associated fracture. No acute intracranial hemorrhage is seen. No acute intracranial process is seen. Dictated by: Stevie Nguyen M.D. on 07/19/2022 at 11:47 Approved by: Stevie Nguyen M.D. on 07/19/2022 at 11:49
--- NOTE | 2022-07-19 11:30 | DI.CT.S_ITS ---
PROCEDURE: CT CERVICAL SPINE WO CON INDICATIONS: fall, facial bruising, small lac next to eye, on asa TECHNIQUE: Noncontrast 3 mm thick sections acquired from the skull base to the T4 level. Sagittal and coronal reformats were then constructed. For radiation dose reduction, the following was used: automated exposure control, adjustment of mA and/or kV according to patient size. COMPARISON: [facility], CT, CT CHEST ABD PEL W CON, 07/19/2022, 11:34. [facility], CT, CT HEAD/BRAIN WO CON, 07/19/2022, 11:34. [facility], CT, CT FACIAL BONES WO CON, 07/19/2022, 11:34. FINDINGS: Image quality: This examination is somewhat limited by quantum mottle artifact. Bones: No fractures or dislocations. Visualized superior ribs are intact. Focal degenerative change is seen involving the C1-C2 interface anteriorly. There is moderate disc space narrowing seen at C4-C5 and C5-C6, with associated endplate irregularity and sclerosis. Milder degenerative changes are seen elsewhere. There is blood within the right maxillary sinus, with a small amount of blood within the right sphenoid sinus. Soft tissues: Prevertebral soft tissues are normal in thickness. No paravertebral hematomas. No apical pneumothoraces. Left-sided pacer leads are partially seen. IMPRESSION: No acute cervical spine fracture can be seen. Cervical spine degenerative changes are seen, which are worst at C4-C5 and C5-C6. Dictated by: Stevie Nguyen M.D. on 07/19/2022 at 11:49 Approved by: Stevie Nguyen M.D. on 07/19/2022 at 11:51
--- NOTE | 2022-07-19 11:30 | DI.CT.S_ITS ---
PROCEDURE: CT CHEST ABD PEL W CON INDICATIONS: fall, facial bruising, small lac next to eye, on asa TECHNIQUE: After the administration of intravenous contrast, 5 mm thick sections acquired from the lung apices to the symphysis. 2.5 mm thick coronal and sagittal reformats were acquired. Additional 7 mm thick coronal maximum intensity projection (MIP) reformats acquired through the lungs. Optional 10-minute delayed imaging may be performed from the kidneys to the bladder. For radiation dose reduction, the following was used: automated exposure control, adjustment of mA and/or kV according to patient size. COMPARISON: [facility], CR, XR LUMBAR SPINE MIN 4V, 03/25/2021, 9:59. [facility], MR, MR LUMBAR SPINE WO CON, 04/21/2018, 11:08. [facility], CR, XR LUMBAR SPINE 2-3V, 11/22/2019, 15:02. [facility], CT, CT CERVICAL SPINE WO CON, 07/19/2022, 11:34. [facility], CT, CT HEAD/BRAIN WO CON, 07/19/2022, 11:34. [facility], CT, CT FACIAL BONES WO CON, 07/19/2022, 11:34. FINDINGS: Image quality: There is artifact associated with the metallic hardware. Artifact from the metallic hardware is reduced by metal reconstruction algorithm. CHEST: Lungs: No pulmonary contusions or lacerations. Mild areas of subpleural fibrosis can be seen. No acute airspace opacities. No pneumothorax or hemothorax. Central and peripheral airways appear patent and normal in caliber. Mediastinum: No mediastinal hematomas. Heart size is normal. No pericardial effusion. Thoracic aorta and pulmonary arteries demonstrate normal size and enhancement. Atherosclerotic calcification is noted. No mediastinal or hilar adenopathy. Esophagus is normal in caliber. There is a moderate hiatal hernia. Chest wall: No rib fractures. No subcutaneous emphysema. No axillary or supraclavicular adenopathy. Thyroid gland demonstrates no significant abnormality. A left-sided pacer device is seen. Mammoplasty implants are incidentally noted. ABDOMEN: Solid organs: The liver is enlarged. No focal liver laceration or liver lesion is identified. Gallbladder wall is not thickened. Biliary system is non-dilated. Pancreas enhances normally, without transection. Spleen is normal in size and enhancement, without lacerations. No adrenal hematomas. Both kidneys enhance normally, without hydronephrosis or lacerations. Peritoneum and bowel: No free fluid or air. Unenhanced bowel loops demonstrate normal wall thickness and caliber. Nodes and vessels: No retroperitoneal or mesenteric adenopathy. Aorta and inferior vena cava are normal in size and enhancement. Atherosclerotic calcification is noted. Miscellaneous: No significant ventral hernias. PELVIS: Genitourinary: Bladder wall thickness is normal. The uterus is unremarkable. There is a 3.9 cm right ovarian cyst seen, as on series 2, image 121. Miscellaneous: No inguinal hernias or adenopathy. Bones: Lower cervical spine degenerative changes are seen. There is a chronic appearing T12 compression deformity seen. Degenerative changes are seen throughout, which are worst involving the lower lumbar spine. Pelvic ring and hip joints appear intact. Left hip arthroplasty hardware is seen, with associated streak artifact. IMPRESSION: No significant posttraumatic abnormality is seen. 3.9 cm right ovarian cyst. Differential diagnosis in a patient of this age includes an indolent cystic neoplasm. Please consider a follow-up scheduled pelvis ultrasound for further evaluation. Chronic appearing T12 compression deformity, which is believed to be stable compared to the 2020 plain films. If there is focal tenderness at this site, please consider follow-up MRI for further evaluation (assuming that there is no contraindication from the pacer device). Additional findings: Left-sided pacer device Mammoplasty implants Mild areas of subpleural fibrosis Moderate hiatal hernia Enlarged liver Left hip arthroplasty hardware Dictated by: Stevie Nguyen M.D. on 07/19/2022 at 11:52 Approved by: Stevie Nguyen M.D. on 07/19/2022 at 11:59
--- NOTE | 2022-07-19 11:30 | DI.CT.S_ITS ---
PROCEDURE: CT FACIAL BONES WO CON INDICATIONS: fall, facial bruising, small lac next to eye, on asa TECHNIQUE: Noncontrast 2.5 mm thick axial images acquired from the mandible through the frontal sinuses, with coronal and sagittal reformatting. For radiation dose reduction, the following was used: automated exposure control, adjustment of mA and/or kV according to patient size. COMPARISON: [facility], CT, CT CHEST ABD PEL W CON, 07/19/2022, 11:34. [facility], CT, CT CERVICAL SPINE WO CON, 07/19/2022, 11:34. [facility], CT, CT HEAD/BRAIN WO CON, 07/19/2022, 11:34. FINDINGS: Image quality: Excellent. Bones and teeth: There is a blowout fracture seen involving the inferior wall of the right orbit, with herniation of fat and bone fragments into the right maxillary sinus. There is inferior displacement of the inferior right extraocular muscle. No additional fracture of sinus albright or orbital albright can be seen. Nasal bones and septum are intact. Visualized portions of the mandible demonstrate no fractures or subluxation. Zygomatic arches are intact. Pterygoid plates are intact. Visualized portions of the skull base and auditory canals are intact. Sinuses: There is hemorrhage seen within the right maxillary sinus. There is a small amount of layering blood within the right sphenoid sinus. The paranasal sinuses are otherwise relatively clear. Soft tissues: Right periorbital soft tissue swelling is seen. Vascular: Visualized vascular structures appear normal in the absence of contrast. Bony vascular foramina and canals are intact. Atherosclerotic calcification is noted. IMPRESSION: Right inferior orbital blowout fracture, with herniation of bone fragments and fat into the right maxillary sinus. There is downward displacement of the right inferior extraocular muscle. Please correlate with eye movement abnormalities. There is blood seen within the right maxillary sinus and a small amount of layering blood within the right sphenoid sinus. Right peripheral soft tissue swelling is seen. Dictated by: Stevie Nguyen M.D. on 07/19/2022 at 11:41 Approved by: Stevie Nguyen M.D. on 07/19/2022 at 11:47
--- NOTE | 2022-07-19 11:32 | ED.TRAUMA ---
HPI - Trauma General Chief Complaint: Trauma Stated Complaint: Trauma, fall down stairs Time Seen by Provider: 07/19/22 11:23 Source: patient Mode of arrival: EMS Limitations: no limitations History of Present Illness HPI narrative: This is a 76-year-old female anticoagulated on aspirin with history of pacemaker, coronary artery disease with prior angioplasty, hypertension, dyslipidemia who presents for fall downstairs. Patient states she fell down approximately 17 stairs she was actually going up the stairs slipped and fell sliding down mostly on her buttocks but she states at some point she turned her head and hit the right side of her head. Patient states no loss of consciousness she remembers exactly what happened. Patient states she has headache she is pain around the right orbit eye she states right vision is a little blurred but she states her contact also fell out. Patient states she can see but just slightly blurry. No pain of the eyeball itself reported. Patient states she can move her eye without issue. She has some facial bone tenderness as well. Patient denies neck, no back pain, no chest pain or shortness breath. She denies any abdominal or flank pain. She denies any numbness tingling or weakness of her extremities. Patient's did receive Zofran and 50 mcg of fentanyl in route blood pressure was 150 initially decreased to 110 and EMS started fluids. Patient states that she has had right hip replacement, pacemaker has bilateral breast implants. She states aspirins her only blood thinner. She denies any drug allergies. She states former tobacco, alcohol or illicit. Her primary care physician is Dr. Gray. Patient is accompanied by her . Patient notes right contact feel out. EMS found it at scene and showed to patient and family. She states left contact still in place. Related Data Home Medications Medication Instructions Recorded Confirmed atorvastatin 40 mg tablet 40 mg PO DAILY 90 days 06/17/18 06/12/21 losartan 100 mg tablet 100 mg PO DAILY 90 days 06/17/18 06/12/21 sertraline 50 mg tablet 50 mg PO DAILY 90 days 06/17/18 06/12/21 aspirin 81 mg tablet,delayed 81 mg PO DAILY 11/10/18 06/12/21 release (Adult Low Dose Aspirin) carvedilol 25 mg tablet 25 mg PO BID 11/10/18 06/12/21 cholecalciferol (vitamin D3) 25 1,000 unit PO DAILY 04/26/19 06/12/21 mcg (1,000 unit) capsule omega 5-uer-qzx-fish oil 1,000 mg cap PO DAILY 04/26/19 06/12/21 (120 mg-180 mg) capsule (Fish Oil) Previous Rx's Medication Instructions Recorded lidocaine 5 % topical ointment 1 applic topical BID-TID PRN 04/26/19 lumbar pain #35.44 grams tramadol 50 mg tablet 50 mg PO Q8H PRN pain #30 tabs 01/11/20 Allergies Allergy/AdvReac Type Severity Reaction Status Date / Time mitomycin Allergy Unknown Verified 07/19/22 13:09 Review of Systems Review of Systems ROS Unobtainable: All systems reviewed & are unremarkable except as noted in HPI and below Patient History Medical History Herniated nucleus pulposus, lumbar Spondylolisthesis at L4-L5 level Social History Smoking Status: Former smoker Smoking Status: Former smoker Exam Narrative Exam Narrative: GEN: C-collar prior to arrival, backboard. Patient appears in mild distress. HEAD: Patient has ecchymosis at the right eye, small subconjunctival hemorrhage of the sclera on the right lateral edge, patient has small superficial laceration of the right forehead above the brow that is approximately a cm in size. She also has a very small skin tear/laceration of the skin just medial to the canthus of the right eye it does not appear to cross the border into the edge of the eye or involve the lacrimal duct, no raccoon/Johansen sign. NECK: Nontender, painless range of motion, trachea midline Positive for Nexus criteria, there is no midline line tenderness, positive for distracting injury, no altered mental status, neuro deficit, recent EtOH. EYES: PERRLA, EOMI Visual acuity: IOP: Right 20 mm Hg, Left 18 mm Hg General: no globe trauma Eyelids: normal inspection, eyelids everted for exam on right. Conjunctiva/Sclera: normal inspection on left, on right patient has a subconjunctival hemorrhage particularly in the lateral side, go involvement directly over the cornea Corneas: normal inspection, examined with fluroscein on right with no uptake. EOM: intact, no palsy/entrapment Pupils: PERRL, normal accomadation, pupil normal Anterior Chambers: normal inspection, no hypema Posterior: normal fundoscopic but difficult secondary to ENT: External inspection normal, trachea is midline, TM's are normal no hemotypanum, Nares are clear, no septal hematoma, no dental or oral injury, airway is normal and with normal occlusion, No bony tenderness RESP: Chest is nontender and has symmetric movement, no ecchymosis, breath sounds are normal no crackles, wheezes or rales CVS: Heart sounds are normal, no murmur noted, No JVD. ABG/GI: Nontender, soft, normal bowel sounds, no distention, no organomegaly, pelvic rock is negative NEURO: Oriented AOx3, neuro is grossly intact, sensation and motor is normal all 4 extremities moving, cranial nerves II through XII are intact, GCS is 15 PSYCH: Normal mood and affect SKIN: Intact, warm and dry, no crepitus and without decubitus BACK: No CVA tenderness, no vertebral tenderness, no step-off's, no crepitus EXT: Atraumatic, hips are nontender, no pedal edema, normal color and temperature, normal range of motion of extremities with normal tendon exam, 2+ pulses in all four extremities Initial Vital Signs Initial Vital Signs: Vital Signs Oxygen Delivery Method 07/19/22 11:19 Course Orders Ordered: ED Orders 07/19/22 11:30 CT cervical spine wo con Stat CT chest abd pel w con Stat CT facial bones wo con Stat CT head/brain wo con Stat 07/19/22 11:31 EKG-12 Lead Stat 07/19/22 11:50 Complete Blood Count AUTO DIFF Stat Comprehensive Metabolic Panel Stat Ethanol (ETOH) Stat Lactate (Lactic Acid) Stat Lipase Stat Partial Thromboplastin Time Stat Prothrombin Time INR Stat Type and Screen Stat 07/19/22 13:13 COVID19 -Nasal RAPID/Pre-Proc Stat 07/19/22 13:59 XR shoulder RT min 2V Stat Discontinued Medications Acetaminophen (Acetaminophen 325 Mg Tablet) 975 mg PO NOW ONE Stop: 07/19/22 13:55 Last Admin: 07/19/22 16:46 Dose: Not Given Documented By: NR Dexamethasone (Dexamethasone 10 Mg/Ml Vial) 10 mg IV NOW ONE Stop: 07/19/22 15:17 Last Admin: 07/19/22 16:06 Dose: 10 mg Documented By: RL Diphtheria/Tetanus/Acell Pertussis (Tet,Diph,Pertuss(Acell),Vac/Pf 0.5 Ml Syringe) 0.5 ml IM .ONCE ONE Stop: 07/19/22 11:31 Last Admin: 07/19/22 13:17 Dose: 0.5 ml Documented By: RL Fluorescein Sodium (Fluorescein 1 Mg Strip) 1 mg EYE-RIGHT NOW ONE Stop: 07/19/22 11:38 Last Admin: 07/19/22 12:39 Dose: 1 mg Documented By: NR Sodium Chloride (Normal Saline 0.9%) 1,000 mls @ 1,000 mls/hr IV BOLUS ONE Stop: 07/19/22 14:51 Last Infusion: 07/19/22 16:07 Dose: 0 mls/hr Documented By: Admin: 07/19/22 13:54 Dose: 1,000 mls/hr Documented By: ELIAZAR Ondansetron HCl (Ondansetron 4 Mg/2 Ml Inj) 4 mg IV NOW ONE Stop: 07/19/22 12:24 Last Admin: 07/19/22 12:38 Dose: 4 mg Documented By: NR Proparacaine HCl (Proparacaine 0.5% Ophth Raquel) 1 drops EYE-BOTH NOW ONE Stop: 07/19/22 11:38 Last Admin: 07/19/22 12:38 Dose: 1 drop Documented By: NR Consultations Consultation #1: Dr. Alexandre, otolaryngology at [facility] discussed patient does have entrapment on imaging as well as on exam. He states can give 10 mg of Decadron IV if felt okay from Ophthalmology standpoint for outpatient follow-up can do a Medrol Dosepak. From his standpoint can potentially be followed up as an outpatient unless ophthalmology feels differently and they would have her set up for next Thursday with the office to be seen to allow swelling to decrease will likely end up getting surgery but not on next Thursday but potentially farther out. Consultation #2: Dr. Field, Ophthalmology, [facility]: Patient accepted for transfer plan to transfer to [facility] ED for ophthalmology evaluation for id treatment with right orbital blowout fracture. Time: 15:34 Vital Signs Vital signs: Vital Signs - 8 hr 07/19/22 11:24 07/19/22 11:19 07/19/22 11:54 Temperature 97.7 F Pulse Rate 62 73 Respiratory Rate 14 29 H Blood Pressure 173/74 H Pulse Oximetry 98 98 Oxygen Delivery Method Room Air Room Air 07/19/22 11:57 07/19/22 11:57 07/19/22 12:00 Temperature Pulse Rate 67 64 Respiratory Rate 20 17 Blood Pressure 191/74 H Pulse Oximetry 99 98 Oxygen Delivery Method 07/19/22 12:01 07/19/22 12:01 07/19/22 12:30 Temperature Pulse Rate 63 63 Respiratory Rate 19 22 Blood Pressure 157/70 H Pulse Oximetry 97 99 Oxygen Delivery Method 07/19/22 12:31 07/19/22 12:31 07/19/22 12:46 Temperature Pulse Rate 63 65 Respiratory Rate 17 17 Blood Pressure 170/74 H Pulse Oximetry 99 98 Oxygen Delivery Method 07/19/22 12:46 07/19/22 13:00 07/19/22 13:00 Temperature Pulse Rate 71 Respiratory Rate 23 Blood Pressure 164/70 H 152/69 H Pulse Oximetry 98 Oxygen Delivery Method 07/19/22 13:15 07/19/22 13:15 07/19/22 13:30 Temperature Pulse Rate 67 61 Respiratory Rate 24 21 Blood Pressure 163/69 H Pulse Oximetry 97 97 Oxygen Delivery Method 07/19/22 13:45 07/19/22 13:46 07/19/22 13:46 Temperature Pulse Rate 92 H 70 Respiratory Rate 35 H 18 Blood Pressure 90/62 Pulse Oximetry 98 98 Oxygen Delivery Method 07/19/22 13:47 07/19/22 13:47 07/19/22 14:00 Temperature Pulse Rate 99 H Respiratory Rate 22 Blood Pressure 103/75 169/100 H Pulse Oximetry 98 Oxygen Delivery Method Room Air 07/19/22 14:00 07/19/22 14:15 07/19/22 14:15 Temperature Pulse Rate 69 80 Respiratory Rate 27 H 37 H Blood Pressure 167/73 H Pulse Oximetry 98 97 Oxygen Delivery Method 07/19/22 14:30 07/19/22 14:30 07/19/22 14:48 Temperature Pulse Rate 60 65 Respiratory Rate 19 Blood Pressure 146/65 H Pulse Oximetry 97 93 Oxygen Delivery Method 07/19/22 14:59 07/19/22 14:59 07/19/22 15:00 Temperature Pulse Rate 69 89 Respiratory Rate 19 20 Blood Pressure 163/71 H Pulse Oximetry 97 98 Oxygen Delivery Method 07/19/22 15:01 07/19/22 15:01 07/19/22 15:15 Temperature Pulse Rate 153 H 61 Respiratory Rate 26 H 23 Blood Pressure 175/71 H Pulse Oximetry 97 98 Oxygen Delivery Method 07/19/22 15:39 07/19/22 15:45 07/19/22 16:00 Temperature Pulse Rate 75 60 64 Respiratory Rate 26 H 26 H Blood Pressure Pulse Oximetry 95 96 96 Oxygen Delivery Method 07/19/22 16:01 07/19/22 16:01 07/19/22 16:19 Temperature Pulse Rate 64 65 Respiratory Rate 18 14 Blood Pressure 183/66 H Pulse Oximetry 97 95 Oxygen Delivery Method MDM - Trauma Lab Data 07/19/22 11:50 07/19/22 11:50 Labs: Lab Results 07/19/22 07/19/22 07/19/22 Range/Units 11:50 11:50 11:50 WBC 12.4 H (4.5-11.0) X10^3/uL RBC 4.54 (4.0-5.2) X10^6/uL Hgb 12.8 (12.0-16.0) g/dL Hct 39.2 (36-46) % MCV 86.4 (80-100) fL MCH 28.3 (26-34) PG MCHC 32.7 (30-36) % RDW 15.1 H (11.6-14.8) % Plt Count 261 (150-400) X10^3/uL Neut % (Auto) 78.7 H (50-75) % Lymph % (Auto) 13.1 L (25-40) % [place] % (Auto) 5.7 (3-14) % Eos % (Auto) 1.8 L (2-4) % Baso % (Auto) 0.7 (0-2) % Neut # (Auto) 9800 H (1644-0121) /uL Lymph # (Auto) 1600 (0174-3758) /uL [place] # (Auto) 700 (0-900) /uL Eos # (Auto) 200 (0-450) /uL Baso # (Auto) 100 (0-100) /uL PT 13.4 H (10.1-12.7) SECONDS INR 1.2 (0.9-1.3) APTT 28 (26-36) SECONDS Sodium 135 L (137-145) mmol/L Potassium 3.5 (3.4-5.1) mmol/L Chloride 99 (98-107) mmol/L Carbon Dioxide 29 (22-32) mmol/L BUN 17 (7-17) mg/dL Creatinine 0.69 (0.52-1.04) mg/dL Estimated GFR > 60 (>60) mL/min BUN/Creatinine Ratio 24.6 H (6-22) Glucose 150 H (80-110) mg/dL Lactate (0.7-2.1) mmol/L Calcium 8.6 (8.4-10.2) mg/dL Total Bilirubin 0.5 (0.2-1.3) mg/dL AST 55 H (14-36) IU/L ALT 28 (<35) IU/L Alkaline Phosphatase 93 (38-126) U/L Total Protein 6.4 (6.3-8.2) g/dL Albumin 3.5 (3.5-5.0) g/dL Globulin 2.9 (1.7-4.1) g/dL Albumin/Globulin Ratio 1.2 (1.0-2.8) Lipase 73 (23-300) U/L Ethyl Alcohol < 10 ( - 10) mg/dL SARS-CoV-2 (PCR) (Negative) Blood Type Antibody Screen 07/19/22 07/19/22 07/19/22 Range/Units 11:50 11:50 13:13 WBC (4.5-11.0) X10^3/uL RBC (4.0-5.2) X10^6/uL Hgb (12.0-16.0) g/dL Hct (36-46) % MCV (80-100) fL MCH (26-34) PG MCHC (30-36) % RDW (11.6-14.8) % Plt Count (150-400) X10^3/uL Neut % (Auto) (50-75) % Lymph % (Auto) (25-40) % [place] % (Auto) (3-14) % Eos % (Auto) (2-4) % Baso % (Auto) (0-2) % Neut # (Auto) (0693-3698) /uL Lymph # (Auto) (8353-1089) /uL [place] # (Auto) (0-900) /uL Eos # (Auto) (0-450) /uL Baso # (Auto) (0-100) /uL PT (10.1-12.7) SECONDS INR (0.9-1.3) APTT (26-36) SECONDS Sodium (137-145) mmol/L Potassium (3.4-5.1) mmol/L Chloride (98-107) mmol/L Carbon Dioxide (22-32) mmol/L BUN (7-17) mg/dL Creatinine (0.52-1.04) mg/dL Estimated GFR (>60) mL/min BUN/Creatinine Ratio (6-22) Glucose (80-110) mg/dL Lactate 1.8 (0.7-2.1) mmol/L Calcium (8.4-10.2) mg/dL Total Bilirubin (0.2-1.3) mg/dL AST (14-36) IU/L ALT (<35) IU/L Alkaline Phosphatase (38-126) U/L Total Protein (6.3-8.2) g/dL Albumin (3.5-5.0) g/dL Globulin (1.7-4.1) g/dL Albumin/Globulin Ratio (1.0-2.8) Lipase (23-300) U/L Ethyl Alcohol ( - 10) mg/dL SARS-CoV-2 (PCR) Negative (Negative) Blood Type O Positive Antibody Screen Negative ECG Data Attestation: I personally reviewed and interpreted this ECG as follows: Prior ECG tracings: not available for review Interpretation: Sinus rhythm with premature atrial complexes right bundle-branch block. MDM Narrative Medical decision making narrative: This is a 76-year-old female who fell down reportedly 17 hardwood steps onto a concrete floor. Patient states she mostly in the inner but but did hit her head. She has ecchymosis bruising of the face with some blood at the opening of the mouth and edge of her eye. Patient had head CT C-spine, facial bones and because of mechanism chest abdomen pelvis. She is also complaining of increased pain has a known rotator cuff injury at the right shoulder so had shoulder x-ray added on she is found to have a right orbital blowout fracture with entrapment with some involvement of the muscle on the right. Her exam she does have difficulty with extraocular movement down words on her right eye. She is 20 70 bilaterally, she states her contact came out in her right eye and EMS found it at the scene. Patient does not have any pain of the eyeball itself and she notes mildly blurry. Patient's pressures were 20 on the right 18 on the left, fluorescein dye was negative with no signs of globe rupture or proptosis. Patient had a low blood pressure in the department received a 500 bolus feeling much improved. She is been able to ambulate and her labs overall had been reassuring. She has not had any more hypotensive episodes. She is feeling much better she did have a dose Tylenol. I spoke with ENT who from their perspective felt outpatient follow-up was appropriate recommended dose of dexamethasone 10 mg IV and Medrol Dosepak unless ophthalmology felt differently. I spoke with Ophthalmology who would like to have patient seen today. They agree with plan for dose of dexamethasone 10 mg IV. They will evaluate patient and decide if she will require intervention today or as an outpatient. Discussed with patient she is understanding that she may end up with outpatient follow-up and plan for BLS transport to [facility]. Patient does have some very small lacerations the edge of the eye that do not appear to include the lacrimal duct or require fixation at this time. Discharge Plan Departure Patient Disposition: [facility] Clinical Impression: Closed blow-out fracture of right orbit, Periorbital ecchymosis of right eye, Pain in right shoulder, Fall down stairs Prescriptions: No Action tramadol 50 mg tablet 50 mg PO Q8H PRN (Reason: pain) Qty: 30 1RF losartan 100 mg tablet 100 mg PO DAILY 90 Days atorvastatin 40 mg tablet 40 mg PO DAILY 90 Days sertraline 50 mg tablet 50 mg PO DAILY 90 Days cholecalciferol (vitamin D3) 1,000 unit capsule 1,000 unit PO DAILY Label Comments: pt reports taking BID omega 9-ell-vea-fish oil [Fish Oil] 1,000 mg (120 mg-180 mg) capsule PO DAILY Label Comments: pt reports taking BID carvedilol 25 mg tablet 25 mg PO BID aspirin [Adult Low Dose Aspirin] 81 mg tablet,delayed release (DR/EC) 81 mg PO DAILY lidocaine 5 % ointment 1 applic TOP BID-TID MDD three applications PRN (Reason: lumbar pain) Qty: 35.44 0RF Referrals: Majo Gray MD [Primary Care Provider] -
[2022-07-19 12:06] LABS: Add Manual Diff / Slide Review NO; Basophils Absolute Auto 100 /uL (0-100); Basophils Percent Auto 0.7 % (0-2); Eosinophils Absolute Auto 200 /uL (0-450); Eosinophils Percent Auto 1.8 % (2-4); Hematocrit 39.2 % (36-46); Hemoglobin 12.8 g/dL (12.0-16.0); Lymphocytes Absolute Auto 1600 /uL (1100-4500); Lymphocytes Percent Auto 13.1 % (25-40); Mean Corpuscular HGB Conc 32.7 % (30-36); Mean Corpuscular Hemoglobin 28.3 PG (26-34); Mean Corpuscular Volume 86.4 fL (80-100); Monocytes Absolute Auto 700 /uL (0-900); Monocytes Percent Auto 5.7 % (3-14); Neutrophils Absolute Auto 9800 /uL (1500-7000); Neutrophils Percent Auto 78.7 % (50-75); Platelet Count 261 X10^3/uL (150-400); Red Blood Cell Count 4.54 X10^6/uL (4.0-5.2); Red Cell Distribution Width 15.1 % (11.6-14.8); White Blood Cell Count 12.4 X10^3/uL (4.5-11.0)
[2022-07-19 12:14] LABS: INR 1.2 (0.9-1.3); Lactate (Lactic Acid) 1.8 mmol/L (0.7-2.1); Prothrombin Time 13.4 SECONDS (10.1-12.7)
[2022-07-19 12:16] LABS: Alanine Aminotransferase 28 IU/L (<35); Albumin 3.5 g/dL (3.5-5.0); Albumin Globulin Ratio 1.2 (1.0-2.8); Alkaline Phosphatase 93 U/L (38-126); Aspartate Aminotransferase 55 IU/L (14-36); BUN Creatinine Ratio 24.6 (6-22); Bilirubin Total 0.5 mg/dL (0.2-1.3); Blood Urea Nitrogen 17 mg/dL (7-17); Calcium 8.6 mg/dL (8.4-10.2); Carbon Dioxide 29 mmol/L (22-32); Chloride 99 mmol/L (98-107); Estimated Glomerular Filt Rate > 60 mL/min (>60); Ethanol (ETOH) < 10 mg/dL; Globulin 2.9 g/dL (1.7-4.1); Glucose 150 mg/dL (80-110); HEMOLYSIS < 15 (0-50); Lipase 73 U/L (23-300); PTT Partial Thromboplastin Tim 28 SECONDS (26-36); Potassium 3.5 mmol/L (3.4-5.1); Sodium 135 mmol/L (137-145); Total Protein 6.4 g/dL (6.3-8.2)
[2022-07-19] MEDS: ONDANSETRON 4 MG/2 ML INJ IV (12:38)
[2022-07-19] MEDS: PROPARACAINE 0.5% OPHTH SOL 1 DROPS EYE-BOTH (12:38)
[2022-07-19] MEDS: FLUORESCEIN 1 MG STRIP EYE-RIGHT (12:39)
[2022-07-19] MEDS: TET,DIPH,PERTUSS(ACELL),VAC/PF 0.5 ML SYRINGE IM (13:17)
[2022-07-19 13:38] LABS: COVID19 -Nasal RAPID Negative (Negative)
[2022-07-19] MEDS: SODIUM CHLORIDE 0.9% 1,000 ML 1000 ML IV (13:54)
--- NOTE | 2022-07-19 13:59 | DI.RAD.S_ITS ---
PROCEDURE: XR SHOULDER RT MIN 2V INDICATIONS: right shoulder TECHNIQUE: 3 views of the shoulder were acquired. COMPARISON: [facility], CT, CT CHEST ABD PEL W CON, 07/19/2022, 11:34. [facility], CR, XR SHOULDER RT MIN 2V, 03/25/2021, 9:59. FINDINGS: Bones: No fractures or dislocations. No suspicious bony lesions. Visualized ribs appear intact. Degenerative changes are seen, including prominent narrowing of the acromial humeral distance. Soft tissues: No suspicious soft tissue calcifications. A rim calcified right mammoplasty implant can be seen. Pacer leads are partially seen. The visualized lung demonstrates an unremarkable appearance. IMPRESSION: There are degenerative changes seen, without an acute abnormality seen by plain film. If it would be helpful for clinical management decision making, please consider a dedicated, scheduled shoulder MRI for further evaluation (assuming that there is no contraindication from the pacemaker). Dictated by: Stevie Nguyen M.D. on 07/19/2022 at 14:11 Approved by: Stevie Nguyen M.D. on 07/19/2022 at 14:12
--- NOTE | 2022-07-19 14:32 | PC.NURSE ---
pt ambulated to commode with no issues. reassessed skin on pt's back. pt has newly formed bruising across right rib cage, denies tenderness, bruising on upper back, right shoulder, no tenderness. newly seen bruise on upper right shoulder, notified provider, xrays ordered.
[2022-07-19] MEDS: DEXAMETHASONE 10 MG/ML VIAL IV (16:06)
--- NOTE | 2022-07-19 16:18 | PC.NURSE ---
pt ambulated to visual acuity testing. steady on feet. no dizziness, nausea. VSS
== END 2022-07-19 16:45 | disposition short-term general hospital (02) ==
PROVIDERS: Emergency Provider Emergency Medicine; Family Provider Family Medicine; PCP Family Medicine
DX: S02.31XA Fracture of orbital floor, right side, initial encounter for closed fracture (principal); S05.11XA Contusion of eyeball and orbital tissues, right eye, initial encounter; M25.511 Pain in right shoulder; H53.8 Other visual disturbances; W10.9XXA Fall (on) (from) unspecified stairs and steps, initial encounter; Z95.0 Presence of cardiac pacemaker; Z20.822 Contact with and (suspected) exposure to COVID-19; Z23 Encounter for immunization
CPT/HCPCS: 36415; 70450; 70486; 71260; 72125; 73030; 74177; 80053; 80320; 83605; 83690; 85025; 85610; 85730; 86850; 86900; 86901; 87635; 90471; 93005; 96361; 96374; 96375; 99285; 99291; C9803; 90715; J1100; J2405

== ENCOUNTER → 2022-08-27 15:06 | Outpatient (CLI) | payer MEDICARE, BC, SELFPAY ==
--- NOTE | 2022-08-27 | DI.US.S_ITS ---
PROCEDURE: US PELVIC COMPLETE INDICATIONS: RIGHT SIDE OVARIAN CYST TECHNIQUE: Real-time scanning was performed of the pelvic organs, with image documentation. Additional endovaginal scanning was necessary due to incomplete visualization of the adnexal and endometrial structures by transabdominal scanning. COMPARISON: CT 07/19/2022. FINDINGS: Uterus: Uterus is anteverted and normal in size at 4.8 x 2.1 x 4.1 cm. The myometrium is heterogeneous. The endometrium measures 2 mm mm combined thickness. Trace fluid within the endometrium. Ovaries: The right ovary measures 4.3 x 3.1 x 3.3 cm, with a calculated ovarian volume of 23 cc. Left ovary is not clearly identified. Right ovarian cystic lesion with internal nodularity. The cystic portion measures 3.7 x 2.7 x 2.4 cm. Other: No pathologic free abdominal or pelvic fluid. IMPRESSION: Suspicious right ovarian cystic lesion with peripheral nodularity. Recommend gynecologic oncology referral. We strive to produce accurate, complete, and clear reports of imaging services. To assist us in improving patient care, this report was composed using standard report templates and voice recognition software. Therefore, it may contain abnormal punctuation, insertions and/or omissions. Occasional wrong-word or sound-alike substitutions may occur. Though we review the report and make efforts to correct it, we do recommend that the report be read carefully in proper context to recognize any text inaccuracies. Dictated by: Osman Erickson M.D. on 09/02/2022 at 15:55 Approved by: Osman Erickson M.D. on 09/02/2022 at 15:58
== END ==
PROVIDERS: Family Provider Family Medicine; PCP Family Medicine; Referring Provider Family Medicine; Visit Provider Family Medicine
DX: N83.201 Unspecified ovarian cyst, right side (principal)
CPT/HCPCS: 76830; 76856

== ENCOUNTER → 2022-10-01 09:21 | Outpatient (CLI) | payer MEDICARE, BC, SELFPAY ==
--- NOTE | 2022-10-01 | DI.US.S_ITS ---
LIMITED ULTRASOUND OF RIGHT BREAST AND AXILLA: 10/01/2022 CLINICAL: Palpable right breast lump and mild focal pain. Comparison is made to exams dated: 10/01/2022 mammogram - [facility], 04/28/2022 ultrasound, 04/28/2022 mammogram, 03/20/2022 mammogram, 03/04/2018 mammogram, and 03/03/2017 mammogram - [facility]. Color flow and real-time ultrasound of the right breast lower inner quadrant and axilla regions were performed. Coates scale images of the real-time examination were reviewed. There is an amorphous, ill defined area of hyperechogenicity with dense posterior shadow in the right breast at 3 o'clock posterior depth 10 cm from nipple, corresponding to the palpable abnormality. There is a questionable discontinuity in the underlying implant, a defect vs shadowing. There is no vascularity. This area measures about 2.1 x 4.0 x 2.1 cm. Also, 14 and 15 cm from the nipple also at 3:00, there are two smaller areas of echogenicity with dirty posterior shadow. No vascular flow. No significant abnormalities were seen sonographically in the right axilla. IMPRESSION: INCOMPLETE: NEEDS ADDITIONAL IMAGING EVALUATION The areas of palpable echogenic shadowing in the right breast at 3 o'clock posterior depth are most consistent with extravasated silicone. No visible finding to suggest malignancy. For confirmation of implant defect and lack of underlying malignancy, an MRI without and with contrast is recommended. Otherwise continued mammographic screening is recommended. Findings and recommendations were conveyed to the patient at time of exam. . This exam was interpreted at Station ID: [id number]. Electronically Signed By: Chhaya contreras/:10/02/2022 11:44:02 Entry: - 10/02/2022 11:44:02 letter sent: Additional Imaging Needed Ultrasound BI-RADS: 0 Indeterminate
--- NOTE | 2022-10-01 | DI.MG.S_ITS ---
UNILATERAL RIGHT DIGITAL DIAGNOSTIC MAMMOGRAM 3D/2D SHORT-TERM FOLLOW-UP WITH AUGMENTATION: 10/01/2022 CLINICAL: Short term follow of the Right breast. Possible new lump in the Right breast. Comparison is made to exams dated: 04/28/2022 mammogram, 03/20/2022 mammogram, and 03/04/2018 mammogram - [facility]. There are scattered areas of fibroglandular density in the right breast (category b / 25%-50% glandular tissue). There are irregular extracapsular silicone collections in the right breast in the inferior medial quadrant that correlate with palpable abnormality. Right prepectoral silicone implant is present demonstrating scattered capsular calcifications. No significant masses, calcifications, or other findings are seen in the breast. IMPRESSION: INCOMPLETE: NEEDS ADDITIONAL IMAGING EVALUATION Extracapsular silicone may correspond to the palpable abnormality and account for the asymmetry. Ultrasound is recommended for full evaluation of this area. This was performed immediately following this exam. Based on the Tyrer Cuzick model (a risk assessment model) the patient's lifetime risk is 3.5% and her 10 year risk is 0.0%. According to the ACR, ACS, and NCCN guidelines, an annual breast MRI exam along with mammogram is recommended if the patient's lifetime risk is 20% or greater. This exam was interpreted at Station ID: [id number]. NOTE: For mammograms, a report in lay terms will be sent to the patient. Approximately 15% of breast malignancies will not be visualized mammographically. In the management of a palpable breast mass, a negative mammogram must not discourage biopsy of a clinically suspicious lesion. Electronically Signed By: Chhaya contreras/:10/02/2022 11:43:24 Entry: - 10/02/2022 11:43:24 ACR BI-RADS Category 0: Incomplete [id number]
== END ==
PROVIDERS: Family Provider Family Medicine; PCP Family Medicine; Referring Provider Family Medicine; Visit Provider Family Medicine
DX: N64.4 Mastodynia (principal); Z98.82 Breast implant status; N63.10 Unspecified lump in the right breast, unspecified quadrant; R92.8 Other abnormal and inconclusive findings on diagnostic imaging of breast
CPT/HCPCS: 76642; 77065; G0279

== ENCOUNTER → 2022-12-01 09:01 | Outpatient (CLI) | payer MEDICARE, BC, SELFPAY ==
--- NOTE | 2022-12-01 | DI.US.S_ITS ---
PROCEDURE: US CAROTID DOPPLER BI INDICATIONS: OCCLUSION AND STENOSIS OF LEFT CAROTID ARTERY TECHNIQUE: Color and pulse Doppler interrogation was performed of both carotid systems, with image documentation and velocity measurements. COMPARISON: [facility], , CAROTID DOPPLER BI, 09/26/2021, 10:07. FINDINGS: Stenosis calculations are based on SRU (Society of Radiologists in Ultrasound) criteria. Right side: Brachial blood pressure: 134/62 mm Hg. Common carotid artery peak systolic velocity: 163 cm/sec. Unchanged. Internal carotid artery peak systolic velocity: 154 cm/sec. Previously 100 centimeter/second. Internal carotid artery end diastolic velocity: 33 cm/sec. Previously 17. External carotid artery peak systolic velocity: 114 cm/sec. Previously 119. ICA/CCA peak systolic ratio: 1.0 . Coates scale imaging description: Scattered atherosclerotic plaque Percent internal carotid artery stenosis: 50-69 percent stenosis . Vertebral artery: Flow direction is antegrade. Left side: Brachial blood pressure: 136/61 mm Hg. Common carotid artery peak systolic velocity: 118 cm/sec. Previously 105. Internal carotid artery peak systolic velocity: 264 cm/sec. Previously 217. Internal carotid artery end diastolic velocity: 33 cm/sec. Previously 32. External carotid artery peak systolic velocity: 141 cm/sec. Previously 137. ICA/CCA peak systolic ratio: 2.2 . Coates scale imaging description: Extensive atherosclerotic plaque. Percent internal carotid artery stenosis: 70 percent to near stenosis . Vertebral artery: Flow direction is antegrade. IMPRESSION: On the right, there is 50-69 percent stenosis of the right internal carotid artery by peak systolic velocity criteria. This has progressed from prior. On the left, there is 70 percent to near stenosis of the internal carotid artery by peak systolic velocity criteria. This has progressed from prior. Dictated by: Osman Erickson M.D. on 12/01/2022 at 10:54 Approved by: Osman Erickson M.D. on 12/01/2022 at 10:57
== END ==
PROVIDERS: Family Provider Family Medicine; PCP Family Medicine; Referring Provider Internal Medicine Cardiovascular Disease; Visit Provider Internal Medicine Cardiovascular Disease
DX: I65.23 Occlusion and stenosis of bilateral carotid arteries (principal)
CPT/HCPCS: 93880

== ENCOUNTER → 2023-01-02 11:47 | Outpatient (CLI) | payer MEDICARE, BC, SELFPAY ==
--- NOTE | 2023-01-02 | DI.RAD.S_ITS ---
PROCEDURE: XR LUMBAR SPINE 2-3V INDICATIONS: low back pain w/o sciatica TECHNIQUE: 3 views of the lumbar spine were acquired. COMPARISON: [facility], , XR LUMBAR SPINE 2-3V, 11/22/2019, 15:02. FINDINGS: Bones: 5 [id number] vertebrae are present. Mild dextroscoliosis centered at the L2-L3 level. 5 mm spondylolisthesis L4-L5 which appears similar prior examination. Severe disc height loss at the L5-S1 level; otherwise multilevel endplate sclerosis and spurring indicating mild multilevel disc degeneration. Moderate facet joint arthropathy L4-L5 and L5-S1. No vertebral body compression fractures. No suspicious bony lesions. Soft tissues: Overlying bowel gas pattern is normal. No suspicious soft tissue calcifications. Vascular calcifications indicate atherosclerosis. IMPRESSION: Multilevel lumbar spine spondylosis, most notably at the L5-S1 level which appears similar prior examination. Dictated by: Sudheer Sosa [facility] Interpreted: Nelly Mcdonough MD on 01/02/2023 at 12:19 Transcribed by: KATIE on 01/02/2023 at 12:21 Approved by: Nelly Mcdonough M.D. on 01/02/2023 at 13:06
== END ==
PROVIDERS: Family Provider Family Medicine; PCP Family Medicine; Referring Provider Internal Medicine; Visit Provider Internal Medicine
DX: M47.816 Spondylosis without myelopathy or radiculopathy, lumbar region (principal); M47.817 Spondylosis without myelopathy or radiculopathy, lumbosacral region; M54.50 Low back pain, unspecified
CPT/HCPCS: 72100

== ENCOUNTER → 2023-01-15 14:10 | Outpatient (CLI) | payer MEDICARE, BC, SELFPAY ==
--- NOTE | 2023-01-15 | DI.CT.S_ITS ---
PROCEDURE: CT LUMBAR SPINE WO CON INDICATIONS: Low back pain, unspecified TECHNIQUE: Noncontrast 3 mm thick sections acquired from the T12 level to the sacrum. Sagittal and coronal reformats were constructed. For radiation dose reduction, the following was used: automated exposure control. COMPARISON: None. FINDINGS: Image quality: Excellent. Bones: There is normal bony alignment. Rightward curvature of the thoracolumbar spine with a Mccullough angle of 14 degrees with multilevel degenerative changes. No acute vertebral body compression fractures. No suspicious lytic or blastic bony lesions. No pars defects. T12-L1: Diffuse disc bulge with disc osteophyte complex. The foramina and central canal are patent. L1-L2: Diffuse disc bulge with disc osteophyte complex causes mild bilateral foraminal stenosis. Intradiscal gas. The central canal has mild stenosis. L2-L3: Diffuse disc bulge with disc osteophyte complex causes mild left foraminal stenosis. Intradiscal gas. The right foramen and central canal are patent. L3-L4: Diffuse disc bulge with disc osteophyte complex causes mild left foraminal stenosis. The right foramen and central canal are patent. L4-L5: Diffuse disc bulge and facet arthrosis with grade 1 anterolisthesis. The foramina and central canal are patent. L5-S1: Disc space narrowing and diffuse disc bulge with disc osteophyte complexes and facet hypertrophy. Severe right and moderate left foraminal stenosis. The central canal is patent. Soft tissues: No retroperitoneal masses or hematomas. The aorta has atherosclerotic calcifications with no aneurysmal dilatation. IMPRESSION: 1. Multilevel lumbar spondylosis causing foraminal and central canal stenosis as detailed above. 2. No acute abnormality. 3. Dextroscoliosis of the thoracolumbar spine with a Mccullough angle of 14 degrees. Dictated by: Julián Mooney M.D. on 01/16/2023 at 11:31 Approved by: Julián Mooney M.D. on 01/16/2023 at 11:38
== END ==
PROVIDERS: Family Provider Family Medicine; PCP Physical Medicine & Rehabilitation; Referring Provider Family Medicine; Visit Provider Family Medicine
DX: M47.816 Spondylosis without myelopathy or radiculopathy, lumbar region (principal); M48.061 Spinal stenosis, lumbar region without neurogenic claudication; M48.07 Spinal stenosis, lumbosacral region; M41.9 Scoliosis, unspecified; M54.50 Low back pain, unspecified
CPT/HCPCS: 72131

== ENCOUNTER 2023-02-05 07:19 | Outpatient (CLI) | payer MEDICARE, BC, SELFPAY ==
[2023-02-05] VITALS (8 sets, daily range): BP systolic 132–194; BP diastolic 59–90; PULSE 60–66; RESP 18–22; TEMP 36.1; O2SAT 95–97
--- NOTE | 2023-02-05 07:21 | DI.RAD.S_ITS ---
PROCEDURE: PAIN L INTERLAMINAR/CAUDAL INJ INDICATIONS: SPONDYLOSIS COMPARISON: [facility], XA, PAIN L INTERLAMINAR/CAUDAL INJ, 01/10/2020, 12:46. [facility], CT, CT LUMBAR SPINE WO CON, 01/15/2023, 14:23. [facility], CR, XR LUMBAR SPINE 2-3V, 01/02/2023, 11:46. FINDINGS: Fluoroscopic spot filming was performed to verify placement of a spinal needle at the L5-S1 level, as labeled on the films. Appropriate location of the needle tip was confirmed by injection of iodinated contrast. IMPRESSION: No significant intraprocedural abnormality. Dictated by: Stevie Nguyen M.D. on 02/05/2023 at 12:26 Approved by: Stevie Nguyen M.D. on 02/05/2023 at 12:26
[2023-02-05] MEDS: MIDAZOLAM 2 MG/2 ML VIAL IV (08:21)
[2023-02-05] MEDS: BETAMETHASONE 30 MG/5 ML MDV 6 MG INJ (08:27)
[2023-02-05] MEDS: IOPAMIDOL 15 ML VIAL 3 ML INJ (08:27)
[2023-02-05] MEDS: BUPIVACAINE 0.25% (PF) VIAL 2 ML INJ (08:28)
[2023-02-05] MEDS: DEXAMETHASONE 10 MG/ML VIAL INJ (08:28)
--- NOTE | 2023-02-05 08:45 | PM.PROC.IR.1 ---
Date/Time/Diagnoses Date of procedure: 02/05/23 Time of procedure: 08:45 Pre-procedure diagnosis: 1. HNP WITH RADICULAR FEATURES, 2. MULTILEVEL CENTRAL STENOSIS, Post-procedure diagnosis: same Procedure Notes Procedure: 1. FLUOROSCOPICALLY GUIDED CONTRAST CONTROLLED INTERLAMINAR EPIDURAL STEROID INJECTION - L5/S1 Indications: Ivelisse is referred by Dr. Gray for treatment of Bilateral Foraminal Stenosis L>R LE symptoms. Physician: Bernardo Carias Total Fluoroscopy time (seconds): 14 Total sedation minutes: 16 Complications: none Procedure in detail & Post-procedure care: FINDINGS Multilevel Central Spinal Stenosis with Nerve Root Compression DESCRIPTION OF PROCEDURE Fluoroscopically guided, contrast-controlled L5/S1 translaminar epidural steroid injection. Following review of allergy and review of potential side effects and complications, including, but not necessarily limited to, infection, allergic reaction, local tissue breakdown, temporary as well as permanent nerve injury, paralysis, stroke and possible , the patient indicated that the patient understood and agreed to proceed. An informed consent document was signed by the patient, witnessed by a nurse, and placed in the patient's chart. Additionally, other treatment options including modalities, medications, and physical therapy were reviewed with the patient. After review of previous anaesthesic history and IV conscious sedation the patient was deemed safe to proceed with today?s procedure with IV conscious sedation as ASA class II designation. Safety time-out was performed to confirm patient ID, procedure to be performed and site of procedure. IV sedation was accomplished with a combination of 2mg of Versed administered by the RN after DO order, titrated to patient comfort during the course of the procedure while the patient remained responsive to all verbal commands. In the prone position, following sterile prep and drape of the lumbar region, the L5/S1 translaminar space was identified fluoroscopically. The skin was anesthetized via a 25-gauge, 1.5-inch needle with 1% lidocaine solution. At this point, a 22-gauge short bevel spinal needle was atraumatically introduced and advanced under fluoroscopic guidance into the region of the L5/S1 translaminar space. Depth was confirmed on lateral view. Radiological data, including multiple fluoroscopic views of the lumbar spine, reveal a spinal needle at the L5/S1 translaminar space. Lateral views then show placement of the needle in the epidural space. Subsequent views show contrast material flowing superiorly and inferiorly in the epidural space. No vascular or intrathecal uptake is observed. At this point, using loss of resistance technique with saline and air, the epidural space was entered. This was confirmed following negative aspiration with injection of approximately 1.5cc of Isovue 200, showing excellent epidural flow without vascular or intrathecal uptake. At this point, 1cc of 1% lidocaine solution combined with 2cc or 10mg of dexamethasone and 6mg of betamethasone was injected without incident. The patent tolerated the procedure without signs of symptoms of complications prior to transfer to the recovery area for further monitoring. The patient was then transferred to the recovery area where they were observed for an appropriate period of time after the injection. The patient reported a VAS score of 6 prior to the procedure and a post-procedure VAS of 0. POST OP INSTRUCTIONS The patient was provided a Pain Log to continue to record their response to the target-specific procedure prior to follow-up visit with their referring physician. Additionally, specific post-injection care instructions and a contact number to our office were provided if concerns arise regarding possible complications associated with the procedure are suspected.
== END 2023-02-05 09:05 | disposition home or self-care (01) ==
LOC: RAD 07:20
PROVIDERS: Family Provider Family Medicine; PCP Family Medicine; Referring Provider Physical Medicine & Rehabilitation; Visit Provider Physical Medicine & Rehabilitation
DX: M51.17 Intervertebral disc disorders with radiculopathy, lumbosacral region (principal); M48.07 Spinal stenosis, lumbosacral region
CPT/HCPCS: 62323; 99152; J0702; J1100; J2250; J3490

== ENCOUNTER → 2023-02-18 14:53 | Outpatient (CLI) | payer MEDICARE, BC, SELFPAY ==
--- NOTE | 2023-02-18 14:55 | DI.RAD.S_ITS ---
PROCEDURE: XR HIP W PEL IF DONE NIKO MIN 4V INDICATIONS: left hip pain s/p fall TECHNIQUE: AP pelvis with lateral view(s) of the bilateral hip(s). COMPARISON: [facility], CR, XR HIP W PEL IF DONE NIKO 3TO4V, 10/04/2020, 13:58. [facility], CR, XR HIP W PEL IF DONE RT 2V, 02/21/2019, 9:37. FINDINGS: Bones: Status post left total hip arthroplasty. The hardware appears intact without surrounding lucency or fracture. No fractures or dislocations. Pelvic ring appears intact. Mild osteoarthritic changes of the right hip with joint space narrowing and marginal spurring. No suspicious bony lesions. Degenerative changes of the visualized lower lumbar spine and pubic symphysis. Soft tissues: The visualized bowel gas pattern is normal. No suspicious soft tissue calcifications. IMPRESSION: No acute fracture or dislocation. Left hip arthroplasty appears intact. Dictated by: Gómez Raymond M.D. on 02/18/2023 at 15:55 Approved by: Gómez Raymond M.D. on 02/18/2023 at 15:56
== END ==
PROVIDERS: Family Provider Family Medicine; PCP Family Medicine; Referring Provider Physical Medicine & Rehabilitation; Visit Provider Physical Medicine & Rehabilitation
DX: M48.062 Spinal stenosis, lumbar region with neurogenic claudication (principal); M47.816 Spondylosis without myelopathy or radiculopathy, lumbar region; M41.26 Other idiopathic scoliosis, lumbar region; M43.16 Spondylolisthesis, lumbar region; M47.817 Spondylosis without myelopathy or radiculopathy, lumbosacral region; M43.17 Spondylolisthesis, lumbosacral region; Z96.642 Presence of left artificial hip joint; Z95.0 Presence of cardiac pacemaker
CPT/HCPCS: 73522; 99214

== ENCOUNTER 2023-04-28 07:54 | Outpatient (CLI) | payer MEDICARE, BC, SELFPAY ==
[2023-04-28] VITALS (9 sets, daily range): BP systolic 111–193; BP diastolic 53–79; PULSE 60–89; RESP 16–20; TEMP 36.1; O2SAT 95–100
--- NOTE | 2023-04-28 08:45 | DI.RAD.S_ITS ---
PROCEDURE: PAIN L/S FACET INJ/BLK 1ST NIKO INDICATIONS: SPONDYLOSIS COMPARISON: [facility], , PAIN L/S FACET INJ/BLK 1ST NIKO, 12/23/2018, 9:42. FINDINGS: Fluoroscopic spot filming was performed to verify placement of spinal needles on both sides at the L4, L5, and S1 levels, as labeled on the films. Appropriate location of the needle tips was confirmed by injection of iodinated contrast. IMPRESSION: Intraprocedural examination demonstrating appropriate positions of the needles. Dictated by: Stevie Nguyen M.D. on 04/28/2023 at 13:48 Approved by: Stevie Nguyen M.D. on 04/28/2023 at 13:49
[2023-04-28] MEDS: MIDAZOLAM 2 MG/2 ML VIAL IV (08:52)
[2023-04-28] MEDS: LIDOCAINE 1% 20 ML 5 ML INJ (08:57)
[2023-04-28] MEDS: iopamidoL 15 ML VIAL 3 ML INJ (08:57)
[2023-04-28] MEDS: BUPIVACAINE 0.5% (PF) 10 ML VIAL 5 ML INJ (08:57)
--- NOTE | 2023-04-28 09:14 | PM.PROC.IR.1 ---
Date/Time/Diagnoses Date of procedure: 04/28/23 Time of procedure: 09:14 Pre-procedure diagnosis: 1. FACET ARTHROPATHY Post-procedure diagnosis: same Procedure Notes Procedure: 1. BILATERAL- L4, L5 and S1 DIAGNOSTIC MB BLOCKS with LA Anesthetic Indications: Ivelisse is referred by Dr. Gray for treatment of Bilateral Axial LBP. Physician: Bernardo Carias Total Fluoroscopy time (seconds): 13 Total sedation minutes: 17 Complications: none Procedure in detail & Post-procedure care: DESCRIPTION OF PROCEDURE Fluoroscopically guided, contrast-controlled bilateral L4, L5 and S1 medial branch blocks with 0.5cc of 0.5% Marcaine. Following review of allergy and review of potential side effects and complications, including, but not necessarily limited to, infection, allergic reaction, local tissue breakdown, nerve injury, paralysis, stroke and possible , the patient indicated that the patient understood and agreed to proceed. An informed consent document was signed by the patient, witnessed by a nurse, and placed in the patient's chart. After review of previous anaesthesic history and IV conscious sedation the patient was deemed safe to proceed with today's procedure with IV conscious sedation as ASA class II designation. Safety time-out was performed to confirm patient ID, procedure to be performed and site of procedure. IV sedation was accomplished with a combination of 2mg of Versed was administered by the RN after DO order, titrated to patient comfort during the course of the procedure while the patient remained responsive to all verbal commands In the prone position, following sterile prep and drape of the lumbar region, the right L4, L5 and S1 anatomical location of the medial branch of the dorsal ramus was identified fluoroscopically. Subsequently an anesthetic skin wheal using 1% lidocaine solution was initiated at each of the anatomical spots. Subsequently then a 22-gauge 3.5-inch spinal needle was atraumatically introduced and advanced under fluoroscopic guidance at each of the corresponding sites at the right L4, L5 and S1 MB. After negative aspiration, 0.2cc of Isovue 200 was injected, confirming placement without vascular or intrathecal uptake. Subsequently then 0.5cc of 0.5% Marcaine solution was injected at each of the corresponding sites at the right L4, L5 and S1 medial branch locations. The identical procedure was replicated on the left. The patient tolerated the procedure well without signs or symptoms of complications prior to transfer to the recovery area continued monitoring without incident. Post-procedure, the patient was monitored initiating provocative activities to measure the amount of relief from block of the facetogenic pain. The patient reported a VAS of 7 prior to the procedure and a post-procedure VAS of 1. It has been a pleasure to assist in the diagnostic and therapeutic care of your patient. POST OP INSTRUCTIONS The patient was provided with a Pain Log to complete over the next several hours and subsequent days prior to the patient's follow up with the ordering physician. If the patient has dragsaw operator relief to the solution applied, then they may be a candidate for medial branch rhizotomy. The patient is aware, was provided, once again, with a Pain Log and will follow up with the referring physician for review and clinical correlation
== END 2023-04-28 09:35 | disposition home or self-care (01) ==
PROVIDERS: Family Provider Family Medicine; PCP Family Medicine; Referring Provider Physical Medicine & Rehabilitation; Visit Provider Physical Medicine & Rehabilitation
DX: M47.817 Spondylosis without myelopathy or radiculopathy, lumbosacral region (principal); M47.816 Spondylosis without myelopathy or radiculopathy, lumbar region
CPT/HCPCS: 64493; 64494; 99152; J2250

== ENCOUNTER → 2023-05-28 15:26 | Outpatient (CLI) | payer MEDICARE, BC, SELFPAY ==
--- NOTE | 2023-05-28 15:29 | DI.RAD.S_ITS ---
PROCEDURE: XR KNEE RT 3V INDICATIONS: rt knee pain TECHNIQUE: For views of the knee were acquired. COMPARISON: None. FINDINGS: Bones: No fractures or dislocations. Severe patellofemoral and mild medial and lateral compartment joint space narrowing and juxta-articular osteophytosis. No suspicious bony lesions. Soft tissues: The small joint effusion. No suspicious soft tissue calcifications. IMPRESSION: 1. No acute osseous abnormality. 2. 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 Dictated by: Phillip Johnson M.D. on 05/28/2023 at 18:48 Approved by: Phillip Johnson M.D. on 05/28/2023 at 19:03
== END ==
PROVIDERS: Family Provider Family Medicine; PCP Family Medicine; Referring Provider Family Medicine; Visit Provider Family Medicine
DX: M17.11 Unilateral primary osteoarthritis, right knee (principal); M25.561 Pain in right knee
CPT/HCPCS: 73562

== ENCOUNTER 2023-06-23 08:57 | Outpatient (CLI) | payer MEDICARE, BC, SELFPAY ==
[2023-06-23] VITALS (8 sets, daily range): BP systolic 130–196; BP diastolic 65–75; PULSE 60–68; RESP 15–22; TEMP 35.7; O2SAT 98–100
--- NOTE | 2023-06-23 09:45 | DI.RAD.S_ITS ---
PROCEDURE: PAIN L/S FACET INJ/BLK 1ST NIKO INDICATIONS: facet arthopathy COMPARISON: [facility], XA, PAIN L/S FACET INJ/BLK 1ST NIKO, 04/28/2023, 9:57. FINDINGS: Fluoroscopic spot filming was performed to verify placement of spinal needles at the L4, L5, S1 level(s), as labeled on the films. Appropriate location(s) of the needle tip(s) was confirmed by injection of iodinated contrast. IMPRESSION: Needle and contrast placement from L4 through S1. Dictated by: Nelly Mcdonough M.D. on 06/23/2023 at 19:04 Approved by: Nelly Mcdonough M.D. on 06/23/2023 at 19:04
[2023-06-23] MEDS: MIDAZOLAM 2 MG/2 ML VIAL IV (10:27)
[2023-06-23] MEDS: iopamidoL 15 ML VIAL 3 ML INJ (10:31)
[2023-06-23] MEDS: LIDOCAINE 1% 20 ML 5 ML INJ (10:31)
[2023-06-23] MEDS: LIDOCAINE 2% INJ SDV 5ML 10 ML INJ (10:32)
--- NOTE | 2023-06-23 10:49 | PM.PROC.IR.1 ---
Date/Time/Diagnoses Date of procedure: 06/23/23 Time of procedure: 10:49 Pre-procedure diagnosis: 1. FACET ARTHROPATHY Post-procedure diagnosis: same Procedure Notes Procedure: 1. BILATERAL- L4, L5 and S1 DIAGNOSTIC MB BLOCKS with SA Anesthetic Indications: Ivelisse is referred by Dr. Gray for treatment of Bilateral Axial LBP. Physician: Bernardo Carias Total Fluoroscopy time (seconds): 16 Total sedation minutes: 18 Complications: none Procedure in detail & Post-procedure care: DESCRIPTION OF PROCEDURE Fluoroscopically guided, contrast-controlled bilateral L4, L5 and S1 medial branch blocks with 0.5cc of 2% Lidocaine. Following review of allergy and review of potential side effects and complications, including, but not necessarily limited to, infection, allergic reaction, local tissue breakdown, nerve injury, paralysis, stroke and possible , the patient indicated that the patient understood and agreed to proceed. An informed consent document was signed by the patient, witnessed by a nurse, and placed in the patient's chart. After review of previous anaesthesic history and IV conscious sedation the patient was deemed safe to proceed with today's procedure with IV conscious sedation as ASA class II designation. Safety time-out was performed to confirm patient ID, procedure to be performed and site of procedure. IV sedation was accomplished with a combination of 2mg of Versed was administered by the RN after DO order, titrated to patient comfort during the course of the procedure while the patient remained responsive to all verbal commands In the prone position, following sterile prep and drape of the lumbar region, the right L4, L5 and S1 anatomical location of the medial branch of the dorsal ramus was identified fluoroscopically. Subsequently an anesthetic skin wheal using 1% lidocaine solution was initiated at each of the anatomical spots. Subsequently then a 22-gauge 3.5-inch spinal needle was atraumatically introduced and advanced under fluoroscopic guidance at each of the corresponding sites at the right L4, L5 and S1 MB. After negative aspiration, 0.2cc of Isovue 200 was injected, confirming placement without vascular or intrathecal uptake. Subsequently then 0.5cc of 2% Lidocaine solution was injected at each of the corresponding sites at the right L4, L5 and S1 medial branch locations. The identical procedure was replicated on the left. The patient tolerated the procedure well without signs or symptoms of complications prior to transfer to the recovery area continued monitoring without incident. Post-procedure, the patient was monitored initiating provocative activities to measure the amount of relief from block of the facetogenic pain. The patient reported a VAS of 7 prior to the procedure and a post-procedure VAS of 1. It has been a pleasure to assist in the diagnostic and therapeutic care of your patient. POST OP INSTRUCTIONS The patient was provided with a Pain Log to complete over the next several hours and subsequent days prior to the patient's follow up with the ordering physician. If the patient has strategic marketing manager relief to the solution applied, then they may be a candidate for medial branch rhizotomy. The patient is aware, was provided, once again, with a Pain Log and will follow up with the referring physician for review and clinical correlation
== END 2023-06-23 11:07 | disposition home or self-care (01) ==
PROVIDERS: Family Provider Family Medicine; PCP Family Medicine; Referring Provider Physical Medicine & Rehabilitation; Visit Provider Physical Medicine & Rehabilitation
DX: M47.816 Spondylosis without myelopathy or radiculopathy, lumbar region (principal); M47.817 Spondylosis without myelopathy or radiculopathy, lumbosacral region
CPT/HCPCS: 64493; 64494; 99152; J2250

== ENCOUNTER → 2023-08-24 08:34 | Outpatient (CLI) | payer MEDICARE, BC, SELFPAY ==
--- NOTE | 2023-08-24 08:36 | DI.US.S_ITS ---
PROCEDURE: US CAROTID DOPPLER BI INDICATIONS: HISTORY OF CAROTID ARTERY STENOSIS TECHNIQUE: Color and pulse Doppler interrogation was performed of both carotid systems, with image documentation and velocity measurements. COMPARISON: [facility], , US CAROTID DOPPLER BI, 12/01/2022, 9:30. FINDINGS: Stenosis calculations are based on SRU (Society of Radiologists in Ultrasound) criteria. Right side: Brachial blood pressure: 128 mm Hg. Common carotid artery peak systolic velocity: 139 cm/sec. Internal carotid artery peak systolic velocity: 124 cm/sec (previously 154 cm/S). Internal carotid artery end diastolic velocity: 27 cm/sec. External carotid artery peak systolic velocity: 126 cm/sec. ICA/CCA peak systolic ratio: 0.9 . Coates scale imaging description: Moderate atherosclerotic plaque Percent internal carotid artery stenosis: Less than 50% stenosis (closer to 50%) . Vertebral artery: Flow direction is antegrade. Left side: Brachial blood pressure: 115 mm Hg. Common carotid artery peak systolic velocity: 118 cm/sec. Internal carotid artery peak systolic velocity: 241 cm/sec. Internal carotid artery end diastolic velocity: 30 cm/sec. External carotid artery peak systolic velocity: 147 cm/sec. ICA/CCA peak systolic ratio: 2 . Coates scale imaging description: Severe atherosclerosis Percent internal carotid artery stenosis: 70% to near occlusion . Vertebral artery: Flow direction is antegrade. IMPRESSION: 1. Right internal carotid artery demonstrates approximately 50% stenosis. Peak systolic velocity is 124 cm/S, previously 154 cm/S. 2. Left internal carotid artery demonstrates 70% to near stenosis, similar to prior. SRU Consensus Criteria * Normal: ICA PSV <125 cm/s, ICA EDV <40 cm/s, no plaque, ICA/CCA <2.0. * <50%: ICA PSV <125 cm/s, ICA EDV <40 cm/s, <50% diameter reducing plaque, ICA/CCA <2.0. * 50-69%: ICA PSV 125-230 cm/s, ICA EDV 40-100 cm/s, 50% or more diameter reducing plaque, ICA/CCA 2.0-4.0. * 70% to near occlusion: >230 cm/s, ICA EDV >100 cm/s, 50% or more diameter reducing plaque, ICA/CCA >4.0 * Near occlusion: low or non detectable PSV, variable EDV, ICA/CCA ratio. Dictated by: Arthie Jeyakumar, M.D. on 08/24/2023 at 18:32 Approved by: Phillip Johnson M.D. on 08/24/2023 at 18:36
--- NOTE | 2023-08-24 08:36 | DI.US.S_ITS ---
PROCEDURE: US PELVIC COMPLETE INDICATIONS: FOLLOW UP RIGHT OVARIAN CYST TECHNIQUE: Real-time scanning was performed of the pelvic organs, with image documentation. Additional endovaginal scanning was necessary due to incomplete visualization of the adnexal and endometrial structures by transabdominal scanning. COMPARISON: [facility], US, US PELVIC COMPLETE, 08/27/2022, 15:27. [facility], CT, CT CHEST ABD PEL W CON, 07/19/2022, 11:34. [facility], US, US PELVIC COMPLETE, 10/30/2022, 15:59. FINDINGS: Uterus: Uterus is anteverted and normal in size at 5.3 x 3.9 x 2.3 cm. The myometrium is heterogeneous. The endometrium measures 1.6 mm combined thickness. There is trace amount of fluid within the endometrial cavity Ovaries: The right ovary measures 4.6 x 2.9 x 2.9 cm, with a calculated ovarian volume of 12.8 cc. The left ovary not visualized. The ovaries have a normal sonographic appearance. Less than 12 follicles can be seen in the right ovary. No adnexal masses are seen. There is a 4.1 x 2.5 x 2.4 cm anechoic cyst in the right adnexa, previously 3.7 x 2.5 x 2.7 cm. Other: No pathologic free abdominal or pelvic fluid. IMPRESSION: 1. A 4.1 x 2.5 x 2.4 cm simple appearing cyst in right ovary, slightly enlarged. 2. Small uterus consistent with age-appropriate atrophy. There is a trace amount of endometrial fluid. Overall, there is no significant change. We strive to produce accurate, complete, and clear reports of imaging services. To assist us in improving patient care, this report was composed using standard report templates and voice recognition software. Therefore, it may contain abnormal punctuation, insertions and/or omissions. Occasional wrong-word or sound-alike substitutions may occur. Though we review the report and make efforts to correct it, we do recommend that the report be read carefully in proper context to recognize any text inaccuracies. Dictated by: Renard Latif M.D. on 08/24/2023 at 16:49 Approved by: Renard Latif M.D. on 08/25/2023 at 15:43
== END ==
LOC: US 08:34
PROVIDERS: Family Provider Family Medicine; PCP Family Medicine; Referring Provider Internal Medicine Cardiovascular Disease; Visit Provider Internal Medicine Cardiovascular Disease
DX: I65.23 Occlusion and stenosis of bilateral carotid arteries (principal); I49.5 Sick sinus syndrome; N83.201 Unspecified ovarian cyst, right side
CPT/HCPCS: 76830; 76856; 93880

== ENCOUNTER 2023-09-01 10:55 | Outpatient (CLI) | payer MEDICARE, BC, SELFPAY ==
[2023-09-01] VITALS (11 sets, daily range): BP systolic 142–209; BP diastolic 58–84; PULSE 60–80; RESP 13–19; TEMP 36.2; O2SAT 94–100
--- NOTE | 2023-09-01 11:15 | DI.RAD.S_ITS ---
PROCEDURE: PAIN L/S MED/LAT N RFA BILAT INDICATIONS: FACET ARTHOPATHY COMPARISON: [facility], , PAIN L/S MED/LAT N RFA BILAT, 04/12/2019, 12:17. FINDINGS: Fluoroscopic spot filming was performed to verify placement of spinal needles at the L4 through S1 level(s), as labeled on the films. Appropriate location(s) of the needle tip(s) was confirmed by injection of iodinated contrast. IMPRESSION: Needle and contrast placement from L4 through S1. Dictated by: Nelly Mcdonough M.D. on 09/01/2023 at 16:59 Approved by: Nelly Mcdonough M.D. on 09/01/2023 at 16:59
[2023-09-01] MEDS: fentaNYL 100 MCG/2 ML INJ 50 MCG IV ×2 (12:02→12:17)
[2023-09-01] MEDS: MIDAZOLAM 2 MG/2 ML VIAL IV (12:02)
[2023-09-01] MEDS: BUPIVACAINE 0.5% (PF) 10 ML VIAL 5 ML INJ (12:09)
[2023-09-01] MEDS: LIDOCAINE 1% 20 ML 5 ML INJ (12:09)
--- NOTE | 2023-09-01 12:41 | P.PCN_ITS ---
Date/Time/Diagnoses Date of procedure: 09/01/23 Time of procedure: 12:41 Pre-procedure diagnosis: 1. RECALCITRANT FACET ARTHROPATHY Post-procedure diagnosis: same Procedure Notes Procedure: 1. BILATERAL L4 AND L5 MEDIAL BRANCH RADIOFREQUENCY NEUROTOMY AND S1 DORSAL RAMUS BRANCH RADIOFREQUENCY NEUROTOMY Indications: Ivelisse is referred by Dr. Gray for treatment of facet arthropathy. Physician: Bernardo Carias Total Fluoroscopy time (seconds): 22 Total sedation minutes: 32 Complications: none Procedure in detail & Post-procedure care: DESCRIPTION OF PROCEDURE Bilateral L4 and L5 medial branch radiofrequency neurotomy and bilateral S1 dorsal ramus radiofrequency neurotomy under fluoroscopy with conscious sedation. The patient is well known to this clinic having undergone previous facet injections with good but temporary relief. The patient has experienced appropriate, concordant relief with previous facet and median branch blocks but the patient's pain has been recalcitrant to further conservative measures. Therefore, based upon the patient's relief and persistent symptoms, the patient is considered an appropriate candidate for facet rhizotomy. All of the patient's questions regarding the risks versus benefits of the procedure, including, but not limited to, bleeding, infection, temporary as well as lasting nerve injury, paralysis, stroke, and , as well treatment alternatives were answered to satisfaction. After obtaining informed consent, denial of pertinent drug allergies, as well as being made aware of the potential risks of bleeding, infection, spinal cord trauma, paralysis, temporary and permanent nerve damage, seizure, stroke, and possible , the patient was brought to the fluoroscopy suite and positioned prone on the fluoroscopy table. The lumbar region was prepped in usual sterile fashion and covered with a fenestrated drape in the usual sterile fashion. Appropriate monitors applied including pulse oximeter, pulse, and blood pressure for regular monitoring throughout the procedure. After review of previous anaesthesic history and IV conscious sedation the patient was deemed safe to proceed with today's procedure with IV conscious sedation as ASA class II designation. Safety time-out was performed to confirm patient ID, procedure to be performed and site of procedure. IV sedation was accomplished with a combination of 2mg of Versed and 100mcg of Fentanyl administered by the RN after DO order, titrated to patient comfort during the course of the procedure while the patient remained responsive to all verbal commands. After local infiltration using 1% lidocaine, under fluoroscopic guidance, a 10- cm RF insulated needle with a 10-mm active tip was positioned parallel to the junction of the right sacral ala and the superior articulating process where the S1 dorsal ramus resides. Needle placement was confirmed with motor stimulation of .5v on the right which produced local stimulation without radicular component. The stimulation was then increased to 2v with, once again, only local multifidus stimulation without radicular component. The needle was then removed and the identical procedure was performed along the length of the right L5 medial branch with motor stimulation at .7v on the right. The identical procedure was once again performed along the length of the right L4 medial branch with motor stimulation of .5v on the right. The medial branches were then anesthetised with 0.5% Marcaine. This was then followed by two discreet lesions performed at 80 degrees Celsius for 90 seconds each. The identical procedure was repeated on the left. The patient tolerated the procedure well without signs or symptoms of complications prior to transfer to the recovery area continued monitoring without incident. The patient was then transferred to the recovery area where they were observed for an appropriate period of time after the injection. The patient reported a VAS score of 9 prior to the procedure and a post-procedure VAS of 0. POST OP INSTRUCTIONS The patient was provided a Pain Log to continue to record the patient's response to the target-specific procedure prior to the patient's follow-up visit with the referring physician. Additionally, specific post-injection care instructions and a contact number to our office were provided if concerns arise regarding possible complications associated with the procedure are suspected.
== END 2023-09-01 12:55 | disposition home or self-care (01) ==
PROVIDERS: Family Provider Family Medicine; PCP Family Medicine; Referring Provider Physical Medicine & Rehabilitation; Visit Provider Physical Medicine & Rehabilitation
DX: M47.817 Spondylosis without myelopathy or radiculopathy, lumbosacral region (principal); M47.816 Spondylosis without myelopathy or radiculopathy, lumbar region
CPT/HCPCS: 64635; 64636; 99152; 99153; J2250; J3010

== ENCOUNTER → 2023-10-01 08:08 | Outpatient (CLI) | payer MEDICARE, BC, SELFPAY ==
--- NOTE | 2023-10-01 | DI.CT.S_ITS ---
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 3-dimensional rqeluuk-lphhstqbc-wlifyvnvmi (MIP) and/or volume rendering reformats were acquired of the central intracranial vasculature and neck separately. For radiation dose reduction, the following was used: automated exposure control, adjustment of mA and/or kV according to patient size. COMPARISON: [facility], , CAROTID DOPPLER BI, 08/24/2023, 9:01. FINDINGS: Image quality: Diagnostic. BRAIN: CSF spaces: Ventricles are normal in size and shape. Basal cisterns are patent. No extra-axial fluid collections. Brain: No significant abnormality of the brain can be seen. Skull and face: Calvarium and facial bones appear intact, without suspicious lesions. Orbits appear normal. Sinuses: Sinuses and mastoids are clear. HEAD CT ANGIOGRAPHY: Anterior circulation: Intracranial internal carotid arteries are normal in size and flow with atherosclerotic vascular calcifications. The flow within the paired anterior cerebral arteries is normal and symmetric. The flow within the middle cerebral arteries is normal and symmetric. The anterior communicating artery is seen. No aneurysms are seen. Posterior circulation: Visualized portions of the vertebral arteries demonstrate normal caliber, and join to form a normal appearing basilar artery. Flow within the posterior cerebral arteries is normal and symmetric. No aneurysms are seen. NECK CT ANGIOGRAPHY: Carotid system: The great vessels demonstrate a conventional anatomy as they arise from the aortic arch with atherosclerotic calcifications. The origins of the common carotid arteries appear patent. The common carotid arteries demonstrate normal caliber and courses. Coarse calcifications of the bilateral carotid bifurcations, worse in the left with high-grade stenosis of the left proximal ICA, approximately 90 percent. No significant stenosis of the right proximal ICA. The internal carotid arteries demonstrate normal calibers and courses. Posterior circulation: The origins of the vertebral arteries both appear widely patent. The more superior extracranial portions of both vertebral arteries also demonstrate normal courses and calibers. They join to form a normal appearing basilar artery. Soft tissues: Visualized neck soft tissues demonstrate no suspicious abnormalities. Partially visualized left chest wall pacemaker. Partially visualized bilateral breast implants. Paraseptal emphysematous changes are noted. Bones: No suspicious bony lesions. Visualized cervical spine appears normally aligned. Degenerative changes of the spine. IMPRESSION: No significant intracranial arterial abnormality is seen. 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 No significant stenosis of the right proximal ICA. Any quantitative measurements of stenosis were performed using NASCET criteria. Dictated by: Gómez Ryamond M.D. on 10/01/2023 at 11:10 Approved by: Gómez Raymond M.D. on 10/01/2023 at 11:42
[2023-10-01 08:39] LABS: Estimated Glomerular Filt Rate > 60 mL/min (>60)
== END ==
PROVIDERS: Radiology Diagnostic Radiology; Family Provider Family Medicine; PCP Family Medicine; Referring Provider Internal Medicine Cardiovascular Disease; Visit Provider Internal Medicine Cardiovascular Disease
DX: M54.50 Low back pain, unspecified (principal); I65.22 Occlusion and stenosis of left carotid artery; Z95.0 Presence of cardiac pacemaker
CPT/HCPCS: 36415; 70496; 70498; 82565; Q9967

== ENCOUNTER 2023-11-28 03:11 | Emergency (ER) | payer MEDICARE, BC, SELFPAY ==
[2023-11-28] VITALS (49 sets, daily range): BP systolic 134–205; BP diastolic 59–94; PULSE 60–76; RESP 17–35; TEMP 36.9; O2SAT 91–97; BMI 38.2
--- NOTE | 2023-11-28 03:23 | ED_ITS ---
HPI - General Adult <Mirna Ryder DO - Last Filed: 11/28/23 18:14> General Chief complaint: Chest Pain Stated complaint: c/p Time Seen by Provider: 11/28/23 03:22 Source: patient, EMS, RN notes reviewed and old records reviewed Mode of arrival: EMS Limitations: no limitations History of Present Illness HPI narrative: 78-year-old female history of coronary artery disease, hypertension, dyslipidemia, pacemaker who presents with complaint of chest discomfort and shortness of breath with exertion. Had 2 episodes evening, and then Thursday night into today Thursday morning had persistent symptoms throughout. Patient states it is every time she tries to exert herself and walk across room. If she is at rest she does not have symptoms. If she lays flat she does not have symptoms she denies any orthopnea and states breathing is actually better. No fevers, no chills no cold cough or congestion. She states she is felt warm with episodes. She states pain start sort of epigastric moves up substernally into her neck feels like a squeezing on her neck, goes down both arms. She states the shortness of breath is always associated with the chest discomfort. Denies any nausea or vomiting. Denies any GI or urinary symptoms. No new swelling of extremities. States she would symptoms when she transferred from the EMS gurney to the bed and was 5/10. She states it is resolved. Patient did receive aspirin EN route 324 mg with EMS. She takes medication for hypertension, dyslipidemia, 81 mg aspirin daily. Patient has had prior catheterization 5+ years ago which was negative in [place]. She states she did have a similar episode 4 months ago while in [place]. She states she was seen in emergency department. She did not have any stress testing or heart catheterization at that time. Denies any drug allergies. No tobacco, alcohol or recreational drugs. She does follow with Cardiology Dr. Robertson is her binding cementer french cord. Dr. Gray is her primary care physician. Related Data Home Medications Medication Instructions Recorded Confirmed atorvastatin 40 mg tablet 40 mg PO DAILY 90 days 06/17/18 07/27/23 losartan 100 mg tablet 100 mg PO DAILY 90 days 06/17/18 07/27/23 sertraline 50 mg tablet 50 mg PO DAILY 90 days 06/17/18 07/27/23 aspirin 81 mg tablet,delayed 81 mg PO DAILY 11/10/18 07/27/23 release (Adult Low Dose Aspirin) carvedilol 25 mg tablet 25 mg PO BID 11/10/18 07/27/23 cholecalciferol (vitamin D3) 25 1,000 unit PO DAILY 04/26/19 07/27/23 mcg (1,000 unit) capsule omega [id number]-fish oil 1,000 mg cap PO DAILY 04/26/19 07/27/23 (120 mg-180 mg) capsule (Fish Oil) amlodipine 5 mg tablet 5 mg PO BID 02/02/23 07/27/23 chlorthalidone 25 mg tablet 25 mg PO DAILY 02/02/23 07/27/23 potassium chloride 10 mEq 10 meq PO DAILY 02/02/23 07/27/23 tablet,extended release celecoxib 200 mg capsule (Celebrex) 200 mg PO DAILY Pain 06/15/23 07/27/23 Previous Rx's Medication Instructions Recorded hydroxyzine pamoate 25 mg capsule 25 mg PO TID PRN pain (scale score 02/18/23 (Vistaril) 4-6) #60 caps cyclobenzaprine 10 mg tablet 10 mg PO BID PRN muscle spasm #60 04/07/23 tabs tizanidine 4 mg tablet 4 mg PO TID PRN muscle spasticity 06/15/23 #60 tabs gabapentin 300 mg capsule 300 mg PO 3XD #60 caps 07/27/23 tramadol 50 mg tablet 50 mg PO BID #60 tabs 07/27/23 Allergies Allergy/AdvReac Type Severity Reaction Status Date / Time mitomycin Allergy Unknown Verified 07/27/23 11:35 Review of Systems <Mirna Ryder DO - Last Filed: 11/28/23 18:14> Review of Systems ROS Unobtainable: All systems reviewed & are unremarkable except as noted in HPI and below Patient History <Mirna Ryder DO - Last Filed: 11/28/23 18:14> Medical History Pacemaker Lumbar stenosis with neurogenic claudication Shoulder pain Scoliosis Osteopenia Lumbar spine pain Foot pain Cervical spine disease Rubella Mumps Chicken pox Ovarian cyst Carotid artery disorder Cardiac arrhythmia Bladder cancer (~2009) Herniated nucleus pulposus, lumbar Spondylolisthesis at L4-L5 level Surgical History History of total left hip arthroplasty Anesthesia History of hip replacement (~2012) Status post insertion of breast implant (~1973) S/P placement of cardiac pacemaker (~2018) Family History Father History of heart disease Mother Congestive heart failure Sister Cancer Sister No problems noted. Grandfather History of heart disease Grandmother History of heart disease Social History Smoking Status: Former smoker Smoking Status: Former smoker Substance Use Type: does not use Exam <Mirna Ryder DO - Last Filed: 11/28/23 18:14> Narrative Exam Narrative: GENERAL: Alert and oriented x three, mild distress. HEENT: Head normocephalic, atraumatic, EOMI, pupils reactive, face symmetric, moist mucous membranes NECK: Supple, full range of motion CARDIOVASCULAR: Regular rate and rhythm without murmurs, rubs or gallops. No JVD. No edema bilateral lower extremities. RESPIRATORY: Breath sounds equal bilaterally, patient has faint wheeze bilaterally, no crackles or rales appreciated. No rhonchi. No tachypnea.. ABDOMEN: Soft, nontender. Normoactive bowel sounds all 4 quadrants. No guarding or rebound, rigidity, no mass : No CVA tenderness EXTREMITIES: Normal range of motion, no clubbing or edema. Neurovascularly intact NEUROLOGICAL: Cranial nerves II through XII grossly intact. Moving all extremities SKIN: Warm, dry, no petechiae, no rashes or lesions. Initial Vital Signs Initial Vital Signs: Vital Signs Blood Pressure 142/94 H 11/28/23 03:14 <Mirna Hameed MD - Last Filed: 11/28/23 07:35> Initial Vital Signs Initial Vital Signs: Vital Signs Blood Pressure 142/94 H 11/28/23 03:14 Course <Mirna Ryder DO - Last Filed: 11/28/23 18:14> Orders Ordered: ED Orders 11/28/23 11:20 PTT Partial Thromboplastin Osmel Q6H Discontinued Medications Albuterol/Ipratropium (Albuterol/Ipratropium 3 Ml Ampul) 3 ml INH NOW ONE Stop: 11/28/23 03:35 Last Admin: 11/28/23 03:42 Dose: 3 ml Documented By: Furosemide (Furosemide 40 Mg/4 Ml Vial) 40 mg IV NOW ONE Stop: 11/28/23 05:38 Last Admin: 11/28/23 06:18 Dose: 40 mg Documented By: CHI Heparin Sodium (Porcine) (Heparin 5,000 Unit/Ml Vial) 8,500 unit 80 unit/kg (8500 unit) IV NOW ONE Stop: 11/28/23 04:36 Last Admin: 11/28/23 04:58 Dose: 8,500 unit Documented By: Hydralazine HCl (Hydralazine 20 Mg/Ml Vial) 10 mg IV NOW ONE Stop: 11/28/23 12:42 Last Admin: 11/28/23 12:50 Dose: Not Given Documented By: MOO Heparin Sodium/Dextrose (Heparin Drip) 25,000 unit in 500 mls @ 37.557 mls/hr IV CONT RINKU; Protocol Last Titration: 11/28/23 05:46 Dose: Infused Documented By: AB Co-signed By: KORI Admin: 11/28/23 04:59 Dose: 18 units/kg/hr, 37.557 mls/hr Documented By: AB Co-signed By: KORI Heparin Sodium/Dextrose (Heparin Drip) 25,000 unit in 500 mls @ 25.038 mls/hr IV CONT RINKU; Protocol Last Titration: 11/28/23 06:22 Dose: Infused Documented By: AB Co-signed By: KORI Admin: 11/28/23 05:46 Dose: 12 units/kg/hr, 25.038 mls/hr Documented By: AB Co-signed By: KORI Heparin Sodium/Dextrose (Heparin Drip) 25,000 unit in 500 mls @ 20 mls/hr IV CONT RINKU; Protocol Last Titration: 11/28/23 13:00 Dose: 16.6 mls/hr, 16.6 mls/hr Documented By: GC Co-signed By: RB Titration: 11/28/23 12:02 Dose: 0 mls/hr, 0 mls/hr Documented By: GC Co-signed By: WILL Admin: 11/28/23 06:39 Dose: 20 mls/hr, 20 mls/hr Documented By: AB Co-signed By: HNG Nitroglycerin (Nitroglycerin 0.4 Mg Sl Tab) 0.4 mg SL [id number] PRN PRN Reason: Chest Pain Vital Signs Vital signs: Vital Signs - 8 hr 11/28/23 10:30 11/28/23 10:31 11/28/23 10:31 Pulse Rate 62 62 Respiratory Rate 33 H 23 Blood Pressure 153/65 H Pulse Oximetry 95 95 11/28/23 11:00 11/28/23 11:01 11/28/23 11:01 Pulse Rate 62 60 Respiratory Rate 28 H 29 H Blood Pressure 141/63 H Pulse Oximetry 95 97 11/28/23 11:30 11/28/23 11:31 11/28/23 11:31 Pulse Rate 60 60 Respiratory Rate 21 23 Blood Pressure 167/72 H Pulse Oximetry 95 95 11/28/23 12:00 11/28/23 12:01 11/28/23 12:01 Pulse Rate 60 60 Respiratory Rate 34 H 25 H Blood Pressure 186/79 H Pulse Oximetry 96 96 11/28/23 12:30 11/28/23 12:31 11/28/23 12:31 Pulse Rate 60 61 Respiratory Rate 22 25 H Blood Pressure 205/78 H Pulse Oximetry 96 96 11/28/23 12:35 11/28/23 12:35 11/28/23 12:50 Pulse Rate 67 69 Respiratory Rate 31 H Blood Pressure 153/70 H 153/70 H Pulse Oximetry 96 11/28/23 13:00 11/28/23 13:01 11/28/23 13:01 Pulse Rate 62 68 Respiratory Rate 34 H 32 H Blood Pressure 160/70 H Pulse Oximetry 11/28/23 13:30 11/28/23 13:31 11/28/23 13:31 Pulse Rate 66 60 Respiratory Rate 29 H 31 H Blood Pressure 157/66 H Pulse Oximetry 96 95 11/28/23 14:00 11/28/23 14:00 11/28/23 14:30 Pulse Rate 60 60 Respiratory Rate 33 H 22 Blood Pressure 150/93 H Pulse Oximetry 96 96 11/28/23 14:30 11/28/23 15:00 11/28/23 15:01 Pulse Rate 60 Respiratory Rate 27 H Blood Pressure 165/72 H 175/72 H Pulse Oximetry 96 11/28/23 15:01 11/28/23 15:30 11/28/23 15:31 Pulse Rate 60 61 60 Respiratory Rate 25 H 20 22 Blood Pressure Pulse Oximetry 96 96 96 11/28/23 15:31 11/28/23 16:00 11/28/23 16:01 Pulse Rate 66 64 Respiratory Rate 25 H 21 Blood Pressure 166/72 H Pulse Oximetry 96 94 11/28/23 16:01 11/28/23 16:05 11/28/23 16:05 Pulse Rate 72 Respiratory Rate 33 H Blood Pressure 177/76 H 193/74 H Pulse Oximetry 96 <Mirna Hameed MD - Last Filed: 11/28/23 07:35> Orders Ordered: ED Orders 11/28/23 11:20 PTT Partial Thromboplastin Osmel Q6H Discontinued Medications Albuterol/Ipratropium (Albuterol/Ipratropium 3 Ml Ampul) 3 ml INH NOW ONE Stop: 11/28/23 03:35 Last Admin: 11/28/23 03:42 Dose: 3 ml Documented By: Furosemide (Furosemide 40 Mg/4 Ml Vial) 40 mg IV NOW ONE Stop: 11/28/23 05:38 Last Admin: 11/28/23 06:18 Dose: 40 mg Documented By: CHI Heparin Sodium (Porcine) (Heparin 5,000 Unit/Ml Vial) 8,500 unit 80 unit/kg (8500 unit) IV NOW ONE Stop: 11/28/23 04:36 Last Admin: 11/28/23 04:58 Dose: 8,500 unit Documented By: Hydralazine HCl (Hydralazine 20 Mg/Ml Vial) 10 mg IV NOW ONE Stop: 11/28/23 12:42 Last Admin: 11/28/23 12:50 Dose: Not Given Documented By: MOO Heparin Sodium/Dextrose (Heparin Drip) 25,000 unit in 500 mls @ 37.557 mls/hr IV CONT RINKU; Protocol Last Titration: 11/28/23 05:46 Dose: Infused Documented By: Co-signed By: KORI Admin: 11/28/23 04:59 Dose: 18 units/kg/hr, 37.557 mls/hr Documented By: AB Co-signed By: KORI Heparin Sodium/Dextrose (Heparin Drip) 25,000 unit in 500 mls @ 25.038 mls/hr IV CONT RINKU; Protocol Last Titration: 11/28/23 06:22 Dose: Infused Documented By: AB Co-signed By: KORI Admin: 11/28/23 05:46 Dose: 12 units/kg/hr, 25.038 mls/hr Documented By: AB Co-signed By: KORI Heparin Sodium/Dextrose (Heparin Drip) 25,000 unit in 500 mls @ 20 mls/hr IV CONT RINKU; Protocol Last Titration: 11/28/23 13:00 Dose: 16.6 mls/hr, 16.6 mls/hr Documented By: GC Co-signed By: RB Titration: 11/28/23 12:02 Dose: 0 mls/hr, 0 mls/hr Documented By: MOO Co-signed By: WILL Admin: 11/28/23 06:39 Dose: 20 mls/hr, 20 mls/hr Documented By: AB Co-signed By: HNG Nitroglycerin (Nitroglycerin 0.4 Mg Sl Tab) 0.4 mg SL [id number] PRN PRN Reason: Chest Pain Vital Signs Vital signs: Vital Signs - 8 hr 11/28/23 10:30 11/28/23 10:31 11/28/23 10:31 Pulse Rate 62 62 Respiratory Rate 33 H 23 Blood Pressure 153/65 H Pulse Oximetry 95 95 11/28/23 11:00 11/28/23 11:01 11/28/23 11:01 Pulse Rate 62 60 Respiratory Rate 28 H 29 H Blood Pressure 141/63 H Pulse Oximetry 95 97 11/28/23 11:30 11/28/23 11:31 11/28/23 11:31 Pulse Rate 60 60 Respiratory Rate 21 23 Blood Pressure 167/72 H Pulse Oximetry 95 95 11/28/23 12:00 11/28/23 12:01 11/28/23 12:01 Pulse Rate 60 60 Respiratory Rate 34 H 25 H Blood Pressure 186/79 H Pulse Oximetry 96 96 11/28/23 12:30 11/28/23 12:31 11/28/23 12:31 Pulse Rate 60 61 Respiratory Rate 22 25 H Blood Pressure 205/78 H Pulse Oximetry 96 96 11/28/23 12:35 11/28/23 12:35 11/28/23 12:50 Pulse Rate 67 69 Respiratory Rate 31 H Blood Pressure 153/70 H 153/70 H Pulse Oximetry 96 11/28/23 13:00 11/28/23 13:01 11/28/23 13:01 Pulse Rate 62 68 Respiratory Rate 34 H 32 H Blood Pressure 160/70 H Pulse Oximetry 11/28/23 13:30 11/28/23 13:31 11/28/23 13:31 Pulse Rate 66 60 Respiratory Rate 29 H 31 H Blood Pressure 157/66 H Pulse Oximetry 96 95 11/28/23 14:00 11/28/23 14:00 11/28/23 14:30 Pulse Rate 60 60 Respiratory Rate 33 H 22 Blood Pressure 150/93 H Pulse Oximetry 96 96 11/28/23 14:30 11/28/23 15:00 11/28/23 15:01 Pulse Rate 60 Respiratory Rate 27 H Blood Pressure 165/72 H 175/72 H Pulse Oximetry 96 11/28/23 15:01 11/28/23 15:30 11/28/23 15:31 Pulse Rate 60 61 60 Respiratory Rate 25 H 20 22 Blood Pressure Pulse Oximetry 96 96 96 11/28/23 15:31 11/28/23 16:00 11/28/23 16:01 Pulse Rate 66 64 Respiratory Rate 25 H 21 Blood Pressure 166/72 H Pulse Oximetry 96 94 11/28/23 16:01 11/28/23 16:05 11/28/23 16:05 Pulse Rate 72 Respiratory Rate 33 H Blood Pressure 177/76 H 193/74 H Pulse Oximetry 96 Medical Decision Making <Mirna Ryder, DO - Last Filed: 11/28/23 18:14> Lab Data 11/28/23 03:50 11/28/23 03:50 Labs: Lab Results 11/28/23 11/28/23 11/28/23 Range/Units 03:50 06:10 11:20 WBC 12.2 H (4.5-11.0) X10^3/uL RBC 4.51 (4.0-5.2) X10^6/uL Hgb 12.5 (12.0-16.0) g/dL Hct 38.6 (36-46) % MCV 85.6 (80-100) fL MCH 27.7 (26-34) PG MCHC 32.4 (30-36) % RDW 16.3 H (11.6-14.8) % Plt Count 200 (150-400) X10^3/uL Neut % (Auto) 76.3 H (50-75) % Lymph % (Auto) 14.0 L (25-40) % Perry % (Auto) 6.9 (3-14) % Eos % (Auto) 1.9 L (2-4) % Baso % (Auto) 0.9 (0-2) % Neut # (Auto) 9300 H (8591-5850) /uL Lymph # (Auto) 1700 (6527-4453) /uL Perry # (Auto) 800 (0-900) /uL Eos # (Auto) 200 (0-450) /uL Baso # (Auto) 100 (0-100) /uL PT 12.1 (9.4-12.5) SECONDS INR 1.1 (0.9-1.3) APTT 25 L 184 H* D (25.1-36.5) SECONDS D-Dimer 1347 H (<500) ng/ml Sodium 139 (137-145) mmol/L Potassium 4.1 (3.4-5.1) mmol/L Chloride 110 H (98-107) mmol/L Carbon Dioxide 24 (22-32) mmol/L BUN 19 H (7-17) mg/dL Creatinine 0.75 (0.52-1.04) mg/dL Estimated GFR > 60 (>60) mL/min BUN/Creatinine Ratio 25.3 H (6-22) Glucose 120 H (80-110) mg/dL Calcium 8.7 (8.4-10.2) mg/dL Total Bilirubin 0.8 (0.2-1.3) mg/dL AST 54 H (14-36) IU/L ALT 19 (<35) IU/L Alkaline Phosphatase 92 (38-126) U/L Total Creatine Kinase 253 H (30-135) U/L Troponin I 0.848 H* 0.823 H* (0.01-0.034) ng/mL NT-Pro-B Natriuret Pep 2280 H (<450) pg/mL Total Protein 6.6 (6.3-8.2) g/dL Albumin 3.7 (3.5-5.0) g/dL Globulin 2.9 (1.7-4.1) g/dL Albumin/Globulin Ratio 1.3 (1.0-2.8) Lipase 95 (23-300) U/L Imaging Data Chest x-ray: Radiologist's Impression: Multifocal bilateral pulmonary infiltrates no pneumothorax, pleural effusion or congestive heart changes heart size is normal. Arterial sclerosis aorta. Cardiac pacemaker present. Spondylitic changes of the thoracic spine CT scan - chest: Radiologist's Impression: No pulmonary embolism, aortic dissection or aneurysm. Multifocal bilateral pulmonary infiltrates and small bilateral pleural effusions and large mediastinal lymph nodes measuring up to 15 mm. Central airways are widely patent bilateral breast implants cardiac pacemaker present. Arteriosclerosis. Centrilobular emphysema. ECG Data Attestation: I personally reviewed and interpreted this ECG as follows: Prior ECG tracings: available for review Interpretation: Normal sinus rhythm, rate of 68 NV 162 QRS of 124 QTC of 463. Normal sinus rhythm with right bundle-branch block. Patient has prior from 07/19/2022 which does not appear similar. EKG number atrial paced rhythm rate of 61 NV 198 QRS of 120 QTC 467, right bundle-branch block. Patient does have persistent T-wave changes but appears similar to prior EKG from earlier today as well as prior EKG from July of 2022. MDM Narrative Medical decision making narrative: 78-year-old female with history of hypertension dyslipidemia has been told she had an PR in the past but has had negative heart catheterization 5 years ago. She was told by a binding cementer french cord that she had had an PR based on her EKG. Patient is on an aspirin daily. She received 324 mg of ASA and route. No nitro sublingual she states chest pain-free currently. Symptoms do seem somewhat cardiac although she would some mild wheeze on exam. Patient was given 1 DuoNeb and on recheck. Cardiac labs and workup including D-dimer she has had long distance travel in the last 4 months. Patient had labs, white count of 12.2, hemoglobin 12.5 platelets are 200, predominance of neutrophils. INR is 1.1, D-dimer is 1347, based on patient's long distance travel 4 months ago and onset of symptoms at that time CT angio was obtained. Patient's electrolytes show appropriate sodium potassium chloride of 110, CO2 of 24 BUN 19, glucose is 120 with a creatinine of 0.75, patient's CK is 253, patient's troponin is positive at 0.848, BNP is 2280. Patient does not have any priors for comparison. EKG EKG shows sinus rhythm with right bundle-branch block, this appears similar to prior from July of 2022. Chest x-ray does show some multifocal infiltrates, CT angio was also obtained and shows same as well as no pulmonary emboli. And small bilateral pleural effusions. Patient was started on heparin drip, initially at pulmonary emboli dosage but was decreased with drip after negative CT angio. Patient received aspirin 324 mg with EMS. She has been chest pain-free so no nitrates were started. Patient did not give received a dose of Lasix as her BNP is somewhat elevated though she does not look significantly overloaded otherwise. She was slightly wheezy did have a DuoNeb and found that is somewhat helpful. She does have a history of tobacco use for approximately 20 years, patient then quit approximately 20 years ago. Discussed with patient finding for today plan for transfer as we do not have Cardiology or ability senior cytogenetics laboratory director. She normally follows with Dr. Reyna for Cardiology in [place]. Patient signed out to Dr. Hameed while awaiting transfer. Calls out to multiple facilities, patient is on [facility] list. <Mirna Hameed MD - Last Filed: 11/28/23 07:35> Lab Data Labs: Lab Results 11/28/23 11/28/23 11/28/23 Range/Units 03:50 06:10 11:20 WBC 12.2 H (4.5-11.0) X10^3/uL RBC 4.51 (4.0-5.2) X10^6/uL Hgb 12.5 (12.0-16.0) g/dL Hct 38.6 (36-46) % MCV 85.6 (80-100) fL MCH 27.7 (26-34) PG MCHC 32.4 (30-36) % RDW 16.3 H (11.6-14.8) % Plt Count 200 (150-400) X10^3/uL Neut % (Auto) 76.3 H (50-75) % Lymph % (Auto) 14.0 L (25-40) % Perry % (Auto) 6.9 (3-14) % Eos % (Auto) 1.9 L (2-4) % Baso % (Auto) 0.9 (0-2) % Neut # (Auto) 9300 H (5110-8351) /uL Lymph # (Auto) 1700 (1817-7730) /uL Perry # (Auto) 800 (0-900) /uL Eos # (Auto) 200 (0-450) /uL Baso # (Auto) 100 (0-100) /uL PT 12.1 (9.4-12.5) SECONDS INR 1.1 (0.9-1.3) APTT 25 L 184 H* D (25.1-36.5) SECONDS D-Dimer 1347 H (<500) ng/ml Sodium 139 (137-145) mmol/L Potassium 4.1 (3.4-5.1) mmol/L Chloride 110 H (98-107) mmol/L Carbon Dioxide 24 (22-32) mmol/L BUN 19 H (7-17) mg/dL Creatinine 0.75 (0.52-1.04) mg/dL Estimated GFR > 60 (>60) mL/min BUN/Creatinine Ratio 25.3 H (6-22) Glucose 120 H (80-110) mg/dL Calcium 8.7 (8.4-10.2) mg/dL Total Bilirubin 0.8 (0.2-1.3) mg/dL AST 54 H (14-36) IU/L ALT 19 (<35) IU/L Alkaline Phosphatase 92 (38-126) U/L Total Creatine Kinase 253 H (30-135) U/L Troponin I 0.848 H* 0.823 H* (0.01-0.034) ng/mL NT-Pro-B Natriuret Pep 2280 H (<450) pg/mL Total Protein 6.6 (6.3-8.2) g/dL Albumin 3.7 (3.5-5.0) g/dL Globulin 2.9 (1.7-4.1) g/dL Albumin/Globulin Ratio 1.3 (1.0-2.8) Lipase 95 (23-300) U/L MDM Narrative Medical decision making narrative: 78-year-old female with history of hypertension dyslipidemia has been told she had an PR in the past but has had negative heart catheterization 5 years ago. She was told by a binding cementer french cord that she had had an PR based on her EKG. Patient is on an aspirin daily. She received 324 mg of ASA and route. No nitro sublingual she states chest pain-free currently. Symptoms do seem somewhat cardiac although she would some mild wheeze on exam. Patient was given 1 DuoNeb and on recheck. Cardiac labs and workup including D-dimer she has had long distance travel in the last 4 months. Patient had labs, white count of 12.2, hemoglobin 12.5 platelets are 200, predominance of neutrophils. INR is 1.1, D-dimer is 1347, based on patient's long distance travel 4 months ago and onset of symptoms at that time CT angio was obtained. Patient's electrolytes show appropriate sodium potassium chloride of 110, CO2 of 24 BUN 19, glucose is 120 with a creatinine of 0.75, patient's CK is 253, patient's troponin is positive at 0.848, BNP is 2280. Patient does not have any priors for comparison. EKG EKG shows sinus rhythm with right bundle-branch block, this appears similar to prior from July of 2022. Chest x-ray does show some multifocal infiltrates, CT angio was also obtained and shows same as well as no pulmonary emboli. And small bilateral pleural effusions. Patient was started on heparin drip, initially at pulmonary emboli dosage but was decreased with drip after negative CT angio. Patient received aspirin 324 mg with EMS. She has been chest pain-free so no nitrates were started. Patient did not give received a dose of Lasix as her BNP is somewhat elevated though she does not look significantly overloaded otherwise. She was slightly wheezy did have a DuoNeb and found that is somewhat helpful. She does have a history of tobacco use for approximately 20 years, patient then quit approximately 20 years ago. Discussed with patient finding for today plan for transfer as we do not have Cardiology or ability senior cytogenetics laboratory director. She normally follows with Dr. Reyna for Cardiology in [place]. Patient signed out to Dr. Hameed while awaiting transfer. Calls out to multiple facilities, patient is on [facility] list. Dr. Hameed - Care of patient signed out to me by Dr. Ryder at 0700. At [address] Almanzar of cardiology at [facility], who accepts patient for transfer. Critical Care Time <Mirna Ryder, DO - Last Filed: 11/28/23 18:14> Critical Care Time Critical Care Time: Yes Attestation: The high probability of a clinically significant, sudden or life threatening deterioration of the cardiac system(s) required my full and direct attention, intervention and personal management. The aggregate critical care time was 40 minutes. This time is in addition to time spent performing reported procedures but includes the following: [x] Data Review and interpretation [x] Patient assessment and monitoring of vital signs [x] Documentation [x] Medication orders and management <Mirna Hameed MD - Last Filed: 11/28/23 07:35> Critical Care Time Total Critical Care Time: 42 Discharge Plan Departure Patient Disposition: [facility] Clinical Impression: Non-ST elevation PR (NSTEMI), CHF (congestive heart failure) Prescriptions: No Action cyclobenzaprine 10 mg tablet 10 mg PO BID PRN (Reason: muscle spasm) Qty: 60 1RF Hold Instructions: Home Medication placed on hold at Doctor's office losartan 100 mg tablet 100 mg PO DAILY 90 Days atorvastatin 40 mg tablet 40 mg PO DAILY 90 Days sertraline 50 mg tablet 50 mg PO DAILY 90 Days cholecalciferol (vitamin D3) 1,000 unit capsule 1,000 unit PO DAILY Patient Comments: pt reports taking BID omega 8-[id number]-fish oil [Fish Oil] 1,000 mg (120 mg-180 mg) capsule PO DAILY Patient Comments: pt reports taking BID carvedilol 25 mg tablet 25 mg PO BID aspirin [Adult Low Dose Aspirin] 81 mg tablet,delayed release (DR/EC) 81 mg PO DAILY hydroxyzine pamoate [Vistaril] 25 mg capsule 25 mg PO TID PRN (Reason: pain (scale score 4-6)) Qty: 60 1RF potassium chloride 10 mEq tablet extended release 10 meq PO DAILY chlorthalidone 25 mg tablet 25 mg PO DAILY amlodipine 5 mg tablet 5 mg PO BID celecoxib [Celebrex] 200 mg capsule 200 mg PO DAILY Hold Instructions: Home Medication placed on hold at Doctor's office tizanidine 4 mg tablet 4 mg PO TID PRN (Reason: muscle spasticity) Qty: 60 1RF tramadol 50 mg tablet 50 mg PO BID Qty: 60 1RF Hold Instructions: Home Medication placed on hold at Doctor's office gabapentin 300 mg capsule 300 mg PO 3XD Qty: 60 0RF Hold Instructions: Home Medication placed on hold at Doctor's office Referrals: Majo Gray MD [Primary Care Provider] -
--- NOTE | 2023-11-28 03:34 | DI.RAD.S_ITS ---
PROCEDURE: XR CHEST 1V INDICATIONS: chest pain/SOB w/ exertion TECHNIQUE: One view of the chest was acquired. COMPARISON: [facility], CR, XR CHEST 2V, 06/29/2019, 17:26. [facility], CR, CHEST 2 VIEW, 10/29/2015, 9:21. FINDINGS: Surgical changes and devices: Left chest pulse generator with electrode leads. Lungs and pleura: Low lung volumes with mild diffuse opacities and interstitial prominence. No drainable effusions. Mediastinum: Aortic calcifications. Heart size is at the upper limit of normal. Bones and chest wall: Degenerative findings. IMPRESSION: Low lung volumes with prominent interstitium and mild scattered opacities, possibly infection or edema. Consider future imaging surveillance to assess for resolution. No significant discrepancy from prelim report. Low lung volumes on single view radiograph limiting evaluation. Dictated by: Gilmer Dasilva M.D. on 11/28/2023 at 9:06 Approved by: Gilmer Dasilva M.D. on 11/28/2023 at 9:08
[2023-11-28] MEDS: ALBUTEROL/IPRATROPIUM 3 ML AMPUL INH (03:42)
[2023-11-28 03:59] LABS: Add Manual Diff / Slide Review NO; Basophils Absolute Auto 100 /uL (0-100); Basophils Percent Auto 0.9 % (0-2); Eosinophils Absolute Auto 200 /uL (0-450); Eosinophils Percent Auto 1.9 % (2-4); Hematocrit 38.6 % (36-46); Hemoglobin 12.5 g/dL (12.0-16.0); Lymphocytes Absolute Auto 1700 /uL (1100-4500); Mean Corpuscular HGB Conc 32.4 % (30-36); Mean Corpuscular Hemoglobin 27.7 PG (26-34); Mean Corpuscular Volume 85.6 fL (80-100); Monocytes Absolute Auto 800 /uL (0-900); Monocytes Percent Auto 6.9 % (3-14); Neutrophils Absolute Auto 9300 /uL (1500-7000); Neutrophils Percent Auto 76.3 % (50-75); Platelet Count 200 X10^3/uL (150-400); Red Blood Cell Count 4.51 X10^6/uL (4.0-5.2); Red Cell Distribution Width 16.3 % (11.6-14.8); White Blood Cell Count 12.2 X10^3/uL (4.5-11.0)
[2023-11-28 04:06] LABS: INR 1.1 (0.9-1.3); Prothrombin Time 12.1 SECONDS (9.4-12.5)
[2023-11-28 04:07] LABS: D Dimer 1347 ng/ml (<500)
[2023-11-28 04:09] LABS: Alanine Aminotransferase 19 IU/L (<35); Albumin 3.7 g/dL (3.5-5.0); Albumin Globulin Ratio 1.3 (1.0-2.8); Alkaline Phosphatase 92 U/L (38-126); Aspartate Aminotransferase 54 IU/L (14-36); BUN Creatinine Ratio 25.3 (6-22); Bilirubin Total 0.8 mg/dL (0.2-1.3); Blood Urea Nitrogen 19 mg/dL (7-17); Calcium 8.7 mg/dL (8.4-10.2); Carbon Dioxide 24 mmol/L (22-32); Chloride 110 mmol/L (98-107); Creatine Kinase 253 U/L (30-135); Estimated Glomerular Filt Rate > 60 mL/min (>60); Globulin 2.9 g/dL (1.7-4.1); Glucose 120 mg/dL (80-110); HEMOLYSIS 18 (0-50); Lipase 95 U/L (23-300); Potassium 4.1 mmol/L (3.4-5.1); Sodium 139 mmol/L (137-145); Total Protein 6.6 g/dL (6.3-8.2)
[2023-11-28 04:10] LABS: PTT Partial Thromboplastin Tim 25 SECONDS (25.1-36.5)
[2023-11-28 04:18] LABS: NT-proBNP (BNP-Adult 18+) 2280 pg/mL (<450)
[2023-11-28 04:25] LABS: Troponin I 0.848 ng/mL (0.01-0.034)
--- NOTE | 2023-11-28 04:25 | DI.CT.S_ITS ---
PROCEDURE: CT ANGIO CHEST PE PROTOCOL INDICATIONS: cp/sob, long distance travel TECHNIQUE: After the administration of intravenous contrast, 2 mm thick sections acquired from the pulmonary apices to the posterior costophrenic angles. 3-dimensional maximum intensity projection (MIP) coronal and sagittal reformats were then acquired through the thorax. For radiation dose reduction, the following was used: automated exposure control, adjustment of mA and/or kV according to patient size. COMPARISON: [facility], CT, CT CHEST ABD PEL W CON, 07/19/2022, 11:34. FINDINGS: Image quality: Diagnostic Lungs and pleura: Mild scattered opacities and diffuse septal thickening. Small pleural effusions bilaterally. Mediastinum, heart, and esophagus: No pulmonary embolism. Mild distal esophageal wall thickening. There are coronary calcifications, cardiomegaly. Prominent mediastinal hilar lymph nodes may be reactive in this clinical setting. Chest wall and thyroid: Calcified breast implants. Left chest wall generator with electrode leads. Upper abdomen: Unremarkable Bones: Degenerative changes. T12 height loss again seen. IMPRESSION: No acute pulmonary embolism. Multifocal mild opacities and diffuse septal thickening. Small effusions. Findings likely represent edema versus infection. Consider future imaging surveillance to assess for resolution. Agree with prelim report. Dictated by: Gilmer Dasilva M.D. on 11/28/2023 at 9:08 Approved by: Gilmer Dasilva M.D. on 11/28/2023 at 9:11
[2023-11-28] MEDS: HEPARIN 5,000 UNIT/ML VIAL 8500 UNIT IV (04:58)
[2023-11-28] MEDS: HEPARIN DRIP 25,000 UNIT/500 ML IV.SOLN 37.557 UNIT IV (04:59)
[2023-11-28] MEDS: HEPARIN DRIP 25,000 UNIT/500 ML IV.SOLN 25.038 UNIT IV (05:46)
--- NOTE | 2023-11-28 06:06 | PC.NURSE ---
0550- placed this pt on the waitlist at [facility] because she is seen by for cardiology there, no beds at this time 0600- placed this pt on the waitlist at [facility]
--- NOTE | 2023-11-28 06:17 | EKG_ITS ---
[address] [address] Test Date: 2023-11-28 Pat Name: Ivelisse Lindsay Department: Room: Gender: Female Management Trainee: dori : 1945 Requested By: Order Number: [id number] Reading MD: Mikel Villagomez Measurements Intervals [place] Rate: 61 P: -19 [place]: 198 QRS: -14 QRSD: 120 T: -24 QT: 464 QTc: 467 Interpretive Statements Atrial-paced rhythm Low voltage QRS Right bundle branch block T wave abnormality, consider lateral ischemia Electronically Signed On 11-30-2023 16:33:54 PDT by Mikel Villagomez
[2023-11-28] MEDS: FUROSEMIDE 40 MG/4 ML VIAL IV (06:18)
[2023-11-28 06:38] LABS: Troponin I 0.823 ng/mL (0.01-0.034)
[2023-11-28] MEDS: HEPARIN DRIP 25,000 UNIT/500 ML IV.SOLN 20 UNIT IV (06:39)
[2023-11-28 11:53] LABS: PTT Partial Thromboplastin Tim 184 SECONDS (25.1-36.5)
== END 2023-11-28 16:30 | disposition short-term general hospital (02) ==
PROVIDERS: Emergency Provider Emergency Medicine; Family Provider Family Medicine; PCP Family Medicine
DX: I21.4 Non-ST elevation (NSTEMI) myocardial infarction (principal); I50.9 Heart failure, unspecified; I11.0 Hypertensive heart disease with heart failure; Z87.891 Personal history of nicotine dependence
CPT/HCPCS: 36415; 71045; 71275; 80053; 82550; 83690; 83880; 84484; 85025; 85379; 85610; 85730; 93005; 94640; 96365; 96366; 96375; 99285; 99291; J1644; J1940; Q9967

== ENCOUNTER → 2024-08-29 09:13 | Outpatient (CLI) | payer MEDICARE, BC, SELFPAY ==
--- NOTE | 2024-08-29 09:16 | DI.CT.S_ITS ---
PROCEDURE: CT ABDOMEN PELVIS W CON INDICATIONS: CALCULUS OF GALLBLADDER AND BILE DUCT TECHNIQUE: After the administration of intravenous contrast, axial sections acquired from the lung bases to the pubic symphysis. Coronal and sagittal reformats were performed. For radiation dose reduction, the following was used: automated exposure control, adjustment of mA and/or kV according to patient size. COMPARISON: [facility], CT, CT ABDOMEN PELVIS WITH CONTRAST, 07/17/2024, 10:54. FINDINGS: Image quality: Diagnostic Lower chest: Bibasilar lung reticulation and atelectasis. Possible contrast in the distal esophagus representing reflux versus dysmotility. The cardiac electrode leads. Liver: Unremarkable Gallbladder and biliary system: Gallbladder is under distended. Nonspecific pericholecystic edema. A biliary stent is in place. Prominent CBD measuring up to 8-9 mm. Pancreas: No ductal dilation. Pancreatic pseudocysts are again seen, the largest pocket measures up to 5 cm in thickness on image 2/39, previously 8.4 cm when measured similarly. Smaller fluid collections are seen anterior to the pancreas throughout, either stable or decreased Spleen: Nonenlarged Adrenals: No discrete nodules Kidneys: There are nonobstructing small renal calculi. Small renal cysts. Subcentimeter lesions are too small to characterize, usually also cysts. No hydronephrosis. Vessels and lymph nodes: The main portal vein is patent. No abdominal aortic aneurysm. No pathologic lymphadenopathy by size criteria. Bowel and peritoneum: No small bowel obstruction. No drainable abscess or ascites. Normal diameter appendix. Suspect old fat necrosis or omental infarction seen in the left lower quadrant. Body wall: Small fat containing umbilical hernia. Pelvis: Bladder is under distended and unremarkable. 3.6 cm right adnexal simple appearing cyst again seen Bones: Left hip arthroplasty with surrounding metallic artifact in the pelvis which obscures evaluation. Degenerative changes. No aggressive appearing osseous abnormality. T12 and L2 endplate deformities are similar to prior. 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 No ductal dilation. Mild pericholecystic edema. Biliary stent in place. CBD is mildly prominent at 8-9 mm. Other findings above. Dictated by: Gilmer Dasilva M.D. on 08/29/2024 at 10:50 Approved by: Gilmer Dasilva M.D. on 08/29/2024 at 10:58
[2024-08-29 09:34] LABS: Add Manual Diff / Slide Review NO; Basophils Absolute Auto 100 /uL (0-100); Eosinophils Absolute Auto 400 /uL (0-450); Eosinophils Percent Auto 4.4 % (2-4); Hematocrit 37.4 % (36-46); Hemoglobin 12.3 g/dL (12.0-16.0); Lymphocytes Absolute Auto 1300 /uL (1100-4500); Lymphocytes Percent Auto 15.3 % (25-40); Mean Corpuscular HGB Conc 32.9 % (30-36); Mean Corpuscular Hemoglobin 27.3 PG (26-34); Mean Corpuscular Volume 83.1 fL (80-100); Monocytes Absolute Auto 600 /uL (0-900); Monocytes Percent Auto 7.8 % (3-14); Neutrophils Absolute Auto 6000 /uL (1500-7000); Neutrophils Percent Auto 71.5 % (50-75); Platelet Count 303 X10^3/uL (150-400); Red Cell Distribution Width 17.3 % (11.6-14.8); White Blood Cell Count 8.3 X10^3/uL (4.5-11.0)
[2024-08-29 09:47] LABS: Estimated Glomerular Filt Rate > 60 mL/min (>60)
[2024-08-29 10:06] LABS: Alanine Aminotransferase 25 IU/L (<35); Albumin Globulin Ratio 1.3 (1.0-2.8); Alkaline Phosphatase 112 U/L (38-126); Aspartate Aminotransferase 50 IU/L (14-36); BUN Creatinine Ratio 21.4 (6-22); Bilirubin Total 0.8 mg/dL (0.2-1.3); Blood Urea Nitrogen 18 mg/dL (7-17); Calcium 9.6 mg/dL (8.4-10.2); Carbon Dioxide 22 mmol/L (22-32); Chloride 104 mmol/L (98-107); Estimated Glomerular Filt Rate > 60 mL/min (>60); Glucose 109 mg/dL (80-110); HEMOLYSIS < 15 (0-50); Potassium 4.4 mmol/L (3.4-5.1); Sodium 137 mmol/L (137-145)
== END ==
PROVIDERS: Family Provider Family Medicine; PCP Family Medicine; Referring Provider Surgery; Visit Provider Surgery
DX: K80.71 Calculus of gallbladder and bile duct without cholecystitis with obstruction (principal); K86.3 Pseudocyst of pancreas; N20.0 Calculus of kidney; N28.1 Cyst of kidney, acquired; K42.9 Umbilical hernia without obstruction or gangrene
CPT/HCPCS: 36415; 74177; 80053; 82565; 85025; Q9967

== ENCOUNTER → 2024-10-20 09:58 | Outpatient (CLI) | payer MEDICARE, BC, SELFPAY ==
--- NOTE | 2024-10-20 10:01 | DI.RAD.S_ITS ---
PROCEDURE: ORTHO-XR FOOT 2V WB LEFT INDICATIONS: L FOOT PAIN TECHNIQUE: 3 weight-bearing views acquired of the foot. COMPARISON: None. FINDINGS: Bones: There is normal bony alignment with weight bearing. No fractures or dislocations. No suspicious bony lesions. Loss of the longitudinal arch. Moderate calcaneal spur. Degenerative intertarsal arthritic changes. Mild hallux valgus Soft tissues: No tibiotalar joint effusion. No suspicious soft tissue calcifications. IMPRESSION: Pes planus, hallux valgus, polyarticular arthritic changes degenerative Approved by: Dewayne Estrada M.D. on 10/21/2024 at 15:15
== END ==
PROVIDERS: Family Provider Family Medicine; PCP Family Medicine; Referring Provider Family Medicine; Visit Provider Family Medicine
DX: M21.42 Flat foot [pes planus] (acquired), left foot (principal); M20.12 Hallux valgus (acquired), left foot; M79.672 Pain in left foot
CPT/HCPCS: 73620